=== PATIENT | male | born 1950 | race Caucasian/White ===

== ENCOUNTER → 2017-06-18 | Outpatient (CLI) | payer OTHER ==
[~2017-06-18] MED LIST: ACYCLOVIR800 MG PO; AMITRIPTYLINE H10 MG PO; ARICEPT ODT5 MG PO; ASCO-CAPS-500500 MG PO; ASPIRIN FOR CHI81 MG PO; ASPIRIN81 M1 PO; B-121000 MCG PO; BACLOFEN10 MG PO; BETAPACE; BRIN20TA PO; CLONAZEPAM0.5 MG PO; COLACE100 MG PO; COUMADIN3 M1 PO; COUMADIN3 MG PO; COZAAR25 MG PO; CRESTOR20 MG PO; DIOVAN80 MG PO; DONEPEZIL HYDROC5 M1 PO; ED BACLOFEN10 MG PO; ELITE MAGNESIUM1 TAB PO; EZETIMIBE10 MG PO; FLAGYL500 MG PO; FLONASE0.05 MG/AC NAS; FLUTICASON0.05 MG/A2 NAS; IRON TABLETS325 MG PO; LEVOTHYROXIN0.025 MG PO; LEVOTHYROXINE0.05 MG PO; LIORESAL10 MG PO; LIPITOR40 MG PO; LIPITOR80 MG PO; LOPRESSOR25 MG PO; LOSARTAN POTASS25 M1 PO; METAMUCIL SMOOT1 PDR PO; METAMUCIL1 PDR PO; METOPROLOL SR25 MG PO; OMEPRAZOLE MAGN20 MG PO; PRAVACHOL40 MG PO; PROTONIX40 MG PO; PYRIDIUM200 MG PO; Percocet 325 MG1 TAB PO; RANITIDINE150 MG PO; RESTORIL30 MG PO; RESTORIL7.5 MG PO; SEROQUEL200 MG PO; SERTRALINE50 MG PO; SOTALOL HCL80 MG PO; SOTALOL80 MG PO; SYNTHROID,LEVO50 MCG PO; SYNTHROID0.05 MG PO; TRAMADOL HCL50 MG PO; TRAZADONE HYDR100 MG PO; TRAZODONE100 MG PO; TRAZODONE150 MG PO; ULTRAM50 MG PO; VICODIN 5/500 505 MG PO; VITAMIN D50000 I3 PO; ZANTAC 150150 MG PO; ZANTAC150 MG PO; ZETIA10 MG PO; ZOLOFT100 MG PO
[2017-06-18 09:53] LABS: BASO # 0.1 10*3/uL (0.0-0.1); BASO % 0.7 % (0.0-1.0); EOS # 0.2 10*3/uL (0.0-0.4); EOS % 2.7 % (1.0-4.0); HEMATOCRIT 41.4 % (42.0-52.0); HEMOGLOBIN 13.5 g/dl (14.0-18.0); LYMPH % 34.3 % (27.0-41.0); MEAN CELL VOLUME 84.7 fl (80.0-94.0); MEAN CORPUSCULAR HGB 27.6 pg (27.0-31.0); MEAN CORPUSCULAR HGB CONC 32.6 g/dl (33.0-37.0); MEAN PLATELET VOLUME 8.9 fl (9.6-12.3); MONO # 0.9 10*3/uL (0.1-1.0); MONO % 9.9 % (3.0-9.0); NEUT # 4.5 10*3/uL (2.3-7.9); NEUT % 51.9 % (47.0-73.0); PLATELET COUNT AUTOMATED 245 10*3/uL (130-400); RED BLOOD COUNT 4.89 10*6/uL (4.50-5.90); RED CELL DISTRI WIDTH 15.3 % (0-14.5); WHITE BLOOD COUNT 8.6 10*3/uL (4.8-10.8)
[2017-06-18 10:24] LABS: ALBUMIN 3.5 gm/dl (3.1-4.5); ALKALINE PHOSPHATASE 70 U/L (45-117); BILIRUBIN, TOTAL 0.3 mg/dl (0.2-1.0); BUN 15 mg/dl (7-24); CARBON DIOXIDE 25 mmol/L (21-32); CHLORIDE 105 mmol/L (98-107); EST GLOM FILT AFRICAN AMERICAN > 60 ml/min; GLUCOSE 106 mg/dL (65-99); POTASSIUM 4.1 mmol/L (3.5-5.1); SGOT/AST 36 IU/L (3-35); SGPT/ALT 52 U/L (12-78); SODIUM 141 mmol/L (136-145); TOTAL PROTEIN 7.7 gm/dL (6.4-8.2)
== END | disposition home or self-care (01) ==
LOC: LAB 09:27 → CT 10:00
PROVIDERS: Urology
DX: Z12.5 Encounter for screening for malignant neoplasm of prostate (principal); D40.0 Neoplasm of uncertain behavior of prostate; R31.9 Hematuria, unspecified; I10 Essential (primary) hypertension; R10.9 Unspecified abdominal pain

== ENCOUNTER 2017-08-15 11:26 | Emergency (ER) | payer OTHER ==
[~2017-08-15] VITALS: Wt 83.0 kg
[2017-08-15 11:41] VITALS: BP 151/70
[2017-08-15] MEDS ORDERED: SMZ PO (11:42)
[2017-08-15] MEDS ORDERED: TMP DS PO (11:42)
[2017-08-15] MEDS ORDERED: NORCO 5-325 TA1 EACH PO (14:12)
== END 2017-08-15 14:05 | disposition home or self-care (01) ==
LOC: ED 11:26
DX: S30.0XXA Contusion of lower back and pelvis, initial encounter (principal); Z88.8 Allergy status to other drugs, medicaments and biological substances; Z88.1 Allergy status to other antibiotic agents; Z79.82 Long term (current) use of aspirin; Z79.899 Other long term (current) drug therapy; Z79.02 Long term (current) use of antithrombotics/antiplatelets; W18.39XA Other fall on same level, initial encounter; Y93.89 Activity, other specified; Y92.89 Other specified places as the place of occurrence of the external cause; Y99.8 Other external cause status

== ENCOUNTER 2017-10-22 10:26 | Emergency (ER) | payer OTHER ==
[~2017-10-22] VITALS: Ht 170.1 cm; Wt 79.8 kg
[~2017-10-22 10:26] MED LIST changes: +NORCO 5-325 TA1 EACH PO; +SMZ PO; +TMP DS PO
[2017-10-22 10:43] VITALS: BP 130/74
[2017-10-22 11:14] LABS: BILIRUBIN NEGATIVE (NEGATIVE); BLOOD NEGATIVE (NEGATIVE); CLARITY CLEAR (CLEAR); COLOR YELLOW (YELLOW); GLUCOSE NEGATIVE (NEGATIVE); KETONE NEGATIVE (NEGATIVE); LEUKO ESTERASE NEGATIVE (NEGATIVE); NITRITE NEGATIVE (NEGATIVE); PH 5.5 (5.0-9.0); UROBILINOGEN 0.2 E.U./dl (0.2-1.0)
[2017-10-22 11:20] LABS: BASO # 0.1 10*3/uL (0.0-0.1); BASO % 0.8 % (0.0-1.0); EOS # 0.2 10*3/uL (0.0-0.4); EOS % 2.6 % (1.0-4.0); HEMOGLOBIN 13.9 g/dl (14.0-18.0); LYMPH # 2.7 10*3/uL (1.3-4.4); LYMPH % 30.5 % (27.0-41.0); MEAN CORPUSCULAR HGB 27.8 pg (27.0-31.0); MEAN CORPUSCULAR HGB CONC 33.1 g/dl (33.0-37.0); MONO # 0.9 10*3/uL (0.1-1.0); MONO % 10.3 % (3.0-9.0); NEUT % 55.5 % (47.0-73.0); PLATELET COUNT AUTOMATED 265 10*3/uL (130-400); RED CELL DISTRI WIDTH 13.5 % (0-14.5); WHITE BLOOD COUNT 8.9 10*3/uL (4.8-10.8)
[2017-10-22 11:28] LABS: ACT PARTIAL THROMBO TIME 38.8 SECONDS (20.8-31.5); INTERNATIONAL NORM RATIO 2.5 (2.0-3.5)
[2017-10-22 11:35] LABS: ALBUMIN 3.9 gm/dl (3.1-4.5); ALKALINE PHOSPHATASE 76 U/L (45-117); BUN 13 mg/dl (7-24); CHLORIDE 104 mmol/L (98-107); CREATININE 1.07 mg/dL (0.70-1.30); LIPASE 164 U/L (73-393); POTASSIUM 4.3 mmol/L (3.5-5.1); SGOT/AST 27 IU/L (3-35); SGPT/ALT 39 U/L (12-78); SODIUM 138 mmol/L (136-145); TOTAL PROTEIN 8.4 gm/dL (6.4-8.2); TROPONIN I < 0.015 ng/ml (<0.045)
[2017-10-22] MEDS ORDERED: PEPCID20 MG PO (16:09)
[2017-10-22] MEDS ORDERED: CARAFATE1 G1 PO (16:09)
[2017-10-22] MEDS ORDERED: XANAX0.5 MG PO (17:13)
== END 2017-10-22 16:15 | disposition home or self-care (01) ==
LOC: ED 10:26
PROVIDERS: Emergency Medicine
DX: K29.00 Acute gastritis without bleeding (principal); F17.200 Nicotine dependence, unspecified, uncomplicated; Z88.8 Allergy status to other drugs, medicaments and biological substances; Z88.1 Allergy status to other antibiotic agents; Z79.899 Other long term (current) drug therapy; Z79.02 Long term (current) use of antithrombotics/antiplatelets

== ENCOUNTER 2018-05-21 15:44 | Inpatient (IN) | payer OTHER ==
[~2018-05-21] VITALS: Ht 170.1 cm; Wt 79.4 kg
--- NOTE | ~2018-05-21 | CON ---
[place], [place] REPORT OF CONSULTATION NAME: [id number] UNIT #: [id number] ROOM: 521 DOCTOR: TAMMIE NIETO MD BIRTHDATE: [birth year] DOS: 05/22/2018 CHIEF COMPLAINT: ICD discharge. HISTORY OF PRESENT ILLNESS: The patient was seen at his bedside with his in attendance today on 05/22/2018 for evaluation of an ICD discharge. He is a 67-year-old man who initially presented with coronary artery disease in the . He had bypass surgery and then a redo in 1996. He suffered an acute myocardial infarction in 2006 with cardiac arrest and was resuscitated at home. He underwent saphenous vein graft stenting to the right coronary artery in 2006. His most recent stress test to my knowledge was done in July 2015 and was a normal examination. Ejection fraction at that time was 55-60% with mild mitral insufficiency noted on an echocardiogram. The patient had an ICD placed after his cardiac arrest in 2006. The device has been replaced twice since then with a lead revision in 2014. The patient developed paroxysmal atrial fibrillation and has had persistent atrial fibrillation since 10/2017. Associated with this, he has had fatigue and dyspnea. There was consideration that he should have his atrial fibrillation, cardioverted; however, his warfarin has been very difficult to control and he is often either supratherapeutic or subtherapeutic; therefore, cardioversion was delayed on numerous occasions. He was scheduled to have a cardioversion done by Dr. Wolff's steam at [facility] this coming week. Yesterday, he was working at home, rushing around and his ICD went off. He had no warning. He did not feel badly beforehand. Interrogation of the ICD showed that he had gone into atrial fibrillation with rapid ventricular response and the device had responded to that. He did not have ventricular tachycardia. He now feels well. Troponin was negative. His EKG showed no acute changes. PAST MEDICAL HISTORY: Includes, 1. Coronary artery disease. 2. Remote bypass surgery with redo in 1996. 3. Acute myocardial infarction complicated by cardiac arrest 2006. The patient had a catheterization with angioplasty to the saphenous vein graft to his right coronary artery. 4. Stress test on 07/21/2015 reportedly normal with ejection fraction 62%. 5. Echocardiogram on 07/21/2015, ejection fraction 55-60% with mild mitral insufficiency. 6. ICD placed in 2006 after resuscitated cardiac arrest. The device has been replaced twice since then. He had a lead revision and a generator change in 2014. 7. Paroxysmal atrial fibrillation. 8. Warfarin therapy for stroke prophylaxis. The patient's INR is extremely difficult to manage. MEDICATIONS: Prior to admission included alprazolam 0.5 mg daily as needed for anxiety, amitriptyline 25 mg at bedtime, buspirone 5 mg t.i.d., levothyroxine 75 [place], [place] REPORT OF CONSULTATION NAME: SEYMOUR BUENROSTRO UNIT #: [id number] ROOM: 521 DOCTOR: TAMMIE NIETO MD BIRTHDATE: [birth year] mcg daily, metoprolol 12.5 mg b.i.d., Seroquel 400 mg at bedtime, ropinirole 1 mg at bedtime, trazodone 150 mg at bedtime, warfarin to maintain an INR between 2 and 3 and zolpidem 10 mg at bedtime. ALLERGIES: LISINOPRIL, WHICH CAUSES ITCHING, PHENYTOIN AND CIPROFLOXACIN. FAMILY HISTORY: Negative for early coronary artery disease. REVIEW OF SYSTEMS: The patient denies diplopia or loss of vision. He denies focal weakness. He did have lightheadedness, syncope and an ICD discharge yesterday. This was due to atrial fibrillation and a rapid ventricular response. He denies fevers, chills, sweats or recent weight change. He has been fatigued. He does complain of some leg weakness. He denies nausea or vomiting. He denies hemoptysis or hematemesis. He denies change in bowel or bladder habits. He denies blood in his stools or urine. He has not had fevers, heat or cold intolerance. He has not had polyuria or polydipsia. He has not had any peripheral edema. The remainder of the review of systems is negative except as noted above. SOCIAL HISTORY: The patient is and lives with his . He does not smoke or consume significant amounts of alcohol at this time. PHYSICAL EXAMINATION: GENERAL: The patient is a well-nourished white male who is awake, alert and oriented. VITAL SIGNS: Pulse is 56 and regular, blood pressure 134/74. He is afebrile. NECK: Supple. He has no jugular distention. Carotids are full, and no bruits. He had no neck or supraclavicular masses, no thyromegaly. LUNGS: Respirations are unlabored. His chest is clear to auscultation and percussion. He has no presacral edema or chest wall tenderness. CARDIOVASCULAR: His heart has a regular rhythm. He has a fourth heart sound, but I did not hear a third heart sound or murmur. The PMI is not displaced. There is no precordial heave, lift or thrill. ABDOMEN: Soft and normally active without masses, organomegaly or bruits. EXTREMITIES: Showed no edema. Peripheral pulses are easily palpated bilaterally. LABORATORY DATA: Hemoglobin is 11.5, hematocrit 35.8, there are 7200 white cells and 193,000 platelets. INR is 3.4. Sodium is 140, potassium 3.9, chloride 106, CO2 28, BUN 11, creatinine 0.89 with a GFR of greater than 60. Troponin was normal. IMPRESSIONS: 1. Coronary artery disease, status post multiple revascularizations in the past. 2. Myocardial infarction complicated by cardiac arrest 2006. 3. ICD placed after resuscitated cardiac arrest 2006. 4. Paroxysmal atrial fibrillation, which has been more or less continuous since 10/2017. 5. Fatigue and lack of ambition probably due to decreased cardiac output from [place], [place] REPORT OF CONSULTATION NAME: SEYMOUR BUENROSTRO UNIT #: [id number] ROOM: 521 DOCTOR: TAMMIE NIETO MD BIRTHDATE: [birth year] atrial fibrillation. 6. Implantable cardioverter defibrillator discharge found to be inappropriate and due to reaction to atrial fibrillation with rapid ventricular response. 7. The patient converted from atrial fibrillation to sinus rhythm during implantable cardioverter defibrillator discharge. PLAN: The patient's warfarin has been very difficult to adjust and I strongly suggested to be stopped in favor of one of the direct oral anticoagulants. Xarelto would be an appropriate choice. He is on a very small dose of beta randy, which allowed his rate to respond rapidly to his atrial fibrillation. I would increase his metoprolol from 12.5 to 25 mg twice a day. I think that the patient should be on an antiarrhythmic drug at this time. I will be starting propafenone 325 mg twice a day. The patient will be seen by his regular php architect within the next week or two and they can decide if they want to keep that or use a different antiarrhythmic drug. It has been over 2 years since the patient's last stress test. We will proceed with an outpatient Lexiscan myocardial perfusion study in order to make sure that he has not developed significant ischemia or LV dysfunction since his last testing. From my perspective, all of this could be done as an outpatient and we will make these recommendations and then allow the patient to go home. We will arrange for his stress test and propafenone. I thank Dr. Navarrete for asking our advice regarding his care. TAMMIE NIETO MD CM:CONSTR:REPORT OF CONSULTATION 1342 05/23/18 1056 interface
--- NOTE | ~2018-05-21 | DS ---
[place], [place] DISCHARGE SUMMARY NAME: SEYMOUR BUENROSTRO UNIT #: [id number] ROOM: 521 DOCTOR: BHAVIN ROCA MD BIRTHDATE: [birth year] DOS: 05/22/2018 DISCHARGE DIAGNOSES: 1. Defibrillation by ICD for rapid atrial fibrillation at a heart rate of above 180 beats per minute. The patient is in sinus rhythm now. 2. Coronary artery disease of the [place] vessels and coronary artery bypass graft. 3. Colonic diverticulosis. 4. Cardiomyopathy and defibrillator placement. 5. Ischemic colitis history. 6. Benign essential hypertension. 7. Mixed hyperlipidemia. 8. Hypothyroidism. 9. Generalized anxiety disorder. 10. Early signs of Alzheimer's disease. 11. Paroxysmal atrial fibrillation. HOSPITAL COURSE: 1. The patient was apparently in atrial fibrillation for many months and which he was scheduled for cardioversion. The patient apparently was exerting himself working on his boat and was anxious to get somewhere in time and he got shocked by his ICD, which knocked him out. Following this, he was found to be in normal sinus rhythm. The patient was brought to the Emergency Department and admitted and seen by Cardiology. The patient has remained in normal sinus rhythm with controlled heart rates and if cleared by Cardiology, can be discharged to home in a stable condition today. 2. Benign essential hypertension, treated and controlled. 3. Hypothyroidism, replaced with supplements. 4. Coronary artery disease of the [place] vessel and coronary artery bypass grafts without chest pains. LABORATORY DATA: Hemoglobin 11.5. Normal serum electrolytes. DISCHARGE MANAGEMENT: Coumadin 6 mg every Friday, and Friday and 3 mg every Friday, Friday, Friday and Friday; levothyroxine 75 mcg a day; trazodone 150 mg at bedtime; ropinirole 1 mg at bedtime; Seroquel 400 mg at bedtime; metoprolol 12.5 mg b.i.d.; amitriptyline 25 mg a day; Xanax 0.5 mg daily; Ambien 10 mg at bedtime as needed; buspirone 5 mg t.i.d. [place], [place] DISCHARGE SUMMARY NAME: SEYMOUR BUENROSTRO UNIT #: [id number] ROOM: 521 DOCTOR: BHAVIN ROCA MD BIRTHDATE: [birth year] BHAVIN ROCA MD CM:VICKI [id number] BHAVIN ROCA MD 05/25/18 1119 interface
--- NOTE | ~2018-05-21 | WRIGHTHP ---
[place], [place] PATIENT HISTORY AND PHYSICAL EXAM NAME: SEYMOUR BUENROSTRO [facility] #: [id number] UNIT #: [id number] ROOM: 521 DOCTOR: BHAVIN ROCA MD BIRTHDATE: [birth year] DOS: 05/21/2018 HISTORY OF PRESENT ILLNESS: The patient is a 67-year-old gentleman with a past medical history of: 1. Colonic diverticulosis. 2. Coronary artery disease, status post coronary artery bypass grafts. 3. Cardiomyopathy, with internal cardiac defibrillator and pacemaker placement. 4. History of ischemic colitis. 5. Benign essential hypertension. 6. Mixed hyperlipidemia. 7. Hypothyroidism. 8. Generalized anxiety disorder. 9. Early signs of Alzheimer's disease. 10. Paroxysmal atrial fibrillation. The patient presented to the Emergency Department at [place] [facility] after he was working on his boat and he was in a hurry when he was shocked by the defibrillator. The patient was brought to the Emergency Department and defibrillator was interrogated to find that he was shocked because he was in atrial fibrillation and heart rate went as high as 180 beats per minute. The patient had lost consciousness, but he was awake and alert when he came to the Emergency Department and after initial evaluation, he was recommended for admission to be observed at least overnight and a consult was obtained with Dr. Huber, the telephone station repairer. The patient says this is the first time he has been shocked by the defibrillator. No recent complaints of any dizziness or fainting episodes. No chest pains or any other symptoms. The patient was feeling well before he got shocked. REVIEW OF SYSTEMS: LUNGS: No increasing shortness of breath. GASTROINTESTINAL: No nausea, vomiting, diarrhea or constipation. CARDIOVASCULAR: No chest pains or palpitations. FAMILY HISTORY: Noncontributory. SOCIAL HISTORY: Denies smoking cigarettes, alcohol and drug abuse. MEDICATIONS: Coumadin, metoprolol, levothyroxine, trazodone, ropinirole, Seroquel, amitriptyline, buspirone, Xanax, Ambien. ALLERGIES: Known allergies to LISINOPRIL, DILANTIN and CIPRO. PHYSICAL EXAMINATION: GENERAL: Alert, oriented x 3, in no visible distress. HEENT AND NECK: Extraocular movements are intact. Sclerae are anicteric. Oral mucosa is moist and clean. No obvious facial weakness. Neck is supple without any lymphadenopathy. No thyromegaly. No JVD. No carotid arterial bruits. LUNGS: Clear to auscultation. No wheezing. No rhonchi. [place], [place] PATIENT HISTORY AND PHYSICAL EXAM [facility]: [id number] UNIT #: [id number] ROOM: 521 DOCTOR: BHVAIN ROCA MD BIRTHDATE: [birth year] CARDIOVASCULAR SYSTEM: Heart rate is regular in rate and rhythm. S1 and S2 normally audible. No significant murmur or any other abnormal cardiac sounds. ABDOMEN: Soft, nontender. No obvious organomegaly. Bowel sounds are present. No obvious herniation. EXTREMITIES: Without significant cyanosis or edema. Warm to touch. CENTRAL NERVOUS SYSTEM: Alert and oriented x 3. Cranial nerves II-XII are intact. Speech is normal. The patient is able to move all extremities. Normal muscle strength. Deep tendon reflexes are equal on both sides. Plantars were downgoing. IMPRESSION AND PLAN: 1. The patient with history of paroxysmal atrial fibrillation, presents with episode of loss of consciousness after he was shocked by his internal defibrillator. Interrogation of the defibrillator apparently showed that he got shocked with rapid atrial fibrillation with a ventricular response of more than 180 beats per minute. The patient's heart rate ranging between 90-110 beats per minute and normal sinus rhythm. The patient's case was discussed with Dr. Huber and the defibrillation could have put the patient back into normal sinus rhythm. The patient is being monitored closely on the intermediate monitored bed and I also taught the patient how to check his heart rate quickly when needed and try to keep his heart rate generally below 140 beats per minute. 2. History of major depression, recurrent, treated by Psychiatry. 3. History of coronary artery disease of the [place] vessels, without chest pain and coronary artery bypass grafts. 4. Benign essential hypertension, treated and controlled. The patient takes metoprolol at home. 5. Chronic paroxysmal atrial fibrillation. The patient remains anticoagulated with Coumadin and he takes metoprolol. 6. Coronary artery disease of the [place] vessels, without chest pain. 7. Hypothyroidism, treated with thyroid supplements. 8. Mixed hyperlipidemia, treated with Pravachol. BHAVIN ROCA MD CM:HISPHYS:PATIENT HISTORY AND PHYSICAL EXAMINATION 01 45 BHAVIN ROCA MD 05/21/181944 interface
[~2018-05-21 15:44] MED LIST changes: +CARAFATE1 G1 PO; +PEPCID20 MG PO; -SYNTHROID,LEVO50 MCG PO; +Synthroid,Levo75 MCG PO; +XANAX0.5 MG PO
[2018-05-21 15:47] VITALS: BP 154/84
[2018-05-21] MEDS ORDERED: AMBIEN10 M1 PO (15:52)
[2018-05-21] MEDS ORDERED: AMITRIPTYLINE25 MG PO (15:54)
[2018-05-21] MEDS ORDERED: ROPINIROLE HYDRO1 MG PO (15:55)
[2018-05-21] MEDS ORDERED: BUSPAR5 MG PO (15:57)
[2018-05-21 16:00] VITALS: BP 158/84
[2018-05-21] MEDS ORDERED: COUMADIN3 M1 PO (16:01)
[2018-05-21] MEDS ORDERED: COUMADIN6 M2 PO (16:03)
[2018-05-21 16:05] LABS: BASO % 0.5 % (0.0-1.0); EOS # 0.2 10*3/uL (0.0-0.4); EOS % 2.1 % (1.0-4.0); HEMATOCRIT 38.4 % (42.0-52.0); HEMOGLOBIN 12.6 g/dl (14.0-18.0); LYMPH # 2.3 10*3/uL (1.3-4.4); LYMPH % 27.2 % (27.0-41.0); MEAN CELL VOLUME 82.4 fl (80.0-94.0); MEAN CORPUSCULAR HGB CONC 32.8 g/dl (33.0-37.0); MEAN PLATELET VOLUME 9.3 fl (9.6-12.3); MONO # 0.8 10*3/uL (0.1-1.0); MONO % 9.5 % (3.0-9.0); NEUT # 5.2 10*3/uL (2.3-7.9); NEUT % 60.4 % (47.0-73.0); PLATELET COUNT AUTOMATED 218 10*3/uL (130-400); RED BLOOD COUNT 4.66 10*6/uL (4.50-5.90); RED CELL DISTRI WIDTH 15.2 % (0-14.5); WHITE BLOOD COUNT 8.6 10*3/uL (4.8-10.8)
[2018-05-21 16:14] LABS: ACT PARTIAL THROMBO TIME 42.4 SECONDS (20.8-31.5); INTERNATIONAL NORM RATIO 3.6 (2.0-3.5)
[2018-05-21 16:20] LABS: ALBUMIN 3.8 gm/dl (3.1-4.5); ALKALINE PHOSPHATASE 65 U/L (45-117); BUN 10 mg/dl (7-24); CHLORIDE 107 mmol/L (98-107); CREATININE 1.02 mg/dL (0.70-1.30); LIPASE 72 U/L (73-393); POTASSIUM 3.8 mmol/L (3.5-5.1); SGOT/AST 21 IU/L (3-35); SGPT/ALT 29 U/L (12-78); SODIUM 140 mmol/L (136-145); TOTAL PROTEIN 7.9 gm/dL (6.4-8.2)
[2018-05-21 16:27] LABS: TROPONIN I < 0.015 ng/ml (<0.045)
[2018-05-21 16:29] VITALS: BP 139/85
[2018-05-21 17:01] VITALS: BP 144/76
[2018-05-21 17:38] VITALS: BP 153/88
[2018-05-21 20:00] VITALS: BP 138/71
[2018-05-22] VITALS: BP 132/69
[2018-05-22 07:01] LABS: BASO # 0.1 10*3/uL (0.0-0.1); BASO % 0.8 % (0.0-1.0); EOS # 0.3 10*3/uL (0.0-0.4); EOS % 4.2 % (1.0-4.0); HEMATOCRIT 35.8 % (42.0-52.0); HEMOGLOBIN 11.5 g/dl (14.0-18.0); LYMPH # 2.5 10*3/uL (1.3-4.4); LYMPH % 34.5 % (27.0-41.0); MEAN CORPUSCULAR HGB CONC 32.1 g/dl (33.0-37.0); MEAN PLATELET VOLUME 9.3 fl (9.6-12.3); MONO # 0.9 10*3/uL (0.1-1.0); NEUT # 3.4 10*3/uL (2.3-7.9); NEUT % 47.1 % (47.0-73.0); PLATELET COUNT AUTOMATED 193 10*3/uL (130-400); RED BLOOD COUNT 4.26 10*6/uL (4.50-5.90); RED CELL DISTRI WIDTH 15.4 % (0-14.5); WHITE BLOOD COUNT 7.2 10*3/uL (4.8-10.8)
[2018-05-22 07:06] LABS: INTERNATIONAL NORM RATIO 3.4 (2.0-3.5)
[2018-05-22 07:26] LABS: BUN 11 mg/dl (7-24); CHLORIDE 106 mmol/L (98-107); CREATININE 0.89 mg/dL (0.70-1.30); POTASSIUM 3.9 mmol/L (3.5-5.1); SODIUM 140 mmol/L (136-145)
[2018-05-22 08:00] VITALS: BP 118/65
[2018-05-22 12:00] VITALS: BP 134/74
[2018-05-22] MEDS ORDERED: LOPRESSOR25 MG PO (14:12)
[2018-05-22] MEDS ORDERED: PROPAFENONE HC225 M1 PO (14:12)
== END 2018-05-22 14:30 | disposition home or self-care (01) | DRG 310 ==
LOC: ED 15:44 → EDHOLD 17:19 → 5E 17:19
PROVIDERS: Emergency Medicine; Internal Medicine
PROC: 4B02XTZ Measurement of Cardiac Defibrillator, External Approach (ICD-10-PCS; principal; 2018-05-21)
DX: I48.0 Paroxysmal atrial fibrillation (principal); I42.9 Cardiomyopathy, unspecified; G30.9 Alzheimer's disease, unspecified; F02.80 Dementia in other diseases classified elsewhere, unspecified severity, without behavioral disturbance, psychotic disturbance, mood disturbance, and anxiety; I25.10 Atherosclerotic heart disease of native coronary artery without angina pectoris; F32.9 Major depressive disorder, single episode, unspecified; K57.30 Diverticulosis of large intestine without perforation or abscess without bleeding; I10 Essential (primary) hypertension; E78.2 Mixed hyperlipidemia; E03.9 Hypothyroidism, unspecified; F41.1 Generalized anxiety disorder; Z88.8 Allergy status to other drugs, medicaments and biological substances; Z79.899 Other long term (current) drug therapy; Z79.01 Long term (current) use of anticoagulants; Z79.82 Long term (current) use of aspirin; Z95.1 Presence of aortocoronary bypass graft; Z90.89 Acquired absence of other organs; Z82.49 Family history of ischemic heart disease and other diseases of the circulatory system; Z95.810 Presence of automatic (implantable) cardiac defibrillator; I25.2 Old myocardial infarction

== ENCOUNTER → 2018-05-27 | Outpatient (CLI) | payer OTHER ==
[~2018-05-27] MED LIST changes: +AMBIEN10 M1 PO; +AMITRIPTYLINE25 MG PO; +BUSPAR5 MG PO; +COUMADIN6 M2 PO; +PROPAFENONE HC225 M1 PO; +ROPINIROLE HYDRO1 MG PO
--- NOTE | ~2018-05-27 | ST ---
[place], [place] EXERCISE STRESS TEST REPORT NAME: SEYMOUR BUENROSTRO [facility] #: [id number] UNIT #: [id number] ROOM: DOCTOR: TAMMIE NIETO MD BIRTHDATE: [birth year] DOS: 05/27/2018 PHARMACOLOGIC MYOCARDIAL STRESS TEST INDICATIONS: Atherosclerotic heart disease, post-bypass surgery, recent ICD discharge. PROCEDURE: The patient was given rapid infusion of regadenoson, 0.4 mg intravenously followed by a saline flush. He felt some chest pressure and nausea, but the symptoms resolved spontaneously. His electrocardiogram showed sinus rhythm throughout the entire procedure with a heart rate increasing from 63 to 91 during the infusion. Blood pressure fell from 154/78 to 132/70. Forty seconds after the infusion of regadenoson, he was given radionuclide intravenously. IMPRESSION: 1. Well-tolerated infusion of regadenoson. 2. Radionuclide administered. Please see the separate imaging report for further details of the patient's stress test results. TAMMIE NIETO MD CM:STRESS:EXERCISE STRESS TEST REPORT 1309 0410 TAMMIE NIETO MD
== END | disposition home or self-care (01) ==
LOC: CARD 02:20
DX: I25.10 Atherosclerotic heart disease of native coronary artery without angina pectoris (principal)

== ENCOUNTER → 2018-06-16 | Outpatient (CLI) | payer OTHER | END | disposition home or self-care (01) | LOC: CT 06-15 11:00 | DX: M54.5 Low back pain (principal); W19.XXXA Unspecified fall, initial encounter ==

== ENCOUNTER 2019-05-19 12:27 | Emergency (ER) | payer OTHER ==
[~2019-05-19] VITALS: Wt 78.5 kg
--- NOTE | ~2019-05-19 | EKG ---
[place], [place] ELECTROCARDIOGRAM REPORT NAME: SEYMOUR BUENROSTRO UNIT #: [id number] ROOM: DOCTOR: EPIPHANY DRAFT REPORT BIRTHDATE: [birth year] [facility] Test Date: 2019-05-19 Test Time: 13:02:53 Pat Name: SEYMOUR BUENROSTRO Department: Room: Gender: Angle Shearer: : 1950 Requested By: ABBEY RIVAS Order Number: [id number] Reading MD: William Gregory Measurements Intervals [place] Rate: 69 P: 74 OR: 245 QRS: 24 QRSD: 98 T: 48 QT: 397 QTc: 426 Interpretive Statements Sinus rhythm Prolonged OR interval Electronically Signed On 05-20-2019 4:33:47 PDT by William Gregory CM:EKGRPT:ELECTROCARDIOGRAM REPORT 1302 0433 ABBEY RIVAS EPIPHANY DRAFT REPORT ABBEY RIVAS
[2019-05-19 13:05] LABS: HEMATOCRIT 38.9 % (42.0-52.0); HEMOGLOBIN 12.3 g/dl (14.0-18.0); MEAN CELL VOLUME 87.4 fl (80.0-94.0); MEAN CORPUSCULAR HGB 27.6 pg (27.0-31.0); MEAN CORPUSCULAR HGB CONC 31.6 g/dl (33.0-37.0); PLATELET COUNT AUTOMATED 219 10*3/uL (130-400); RED BLOOD COUNT 4.45 10*6/uL (4.50-5.90); WHITE BLOOD COUNT 7.9 10*3/uL (4.8-10.8)
[2019-05-19 13:21] LABS: ALBUMIN 3.2 gm/dl (3.1-4.5); ALKALINE PHOSPHATASE 90 U/L (45-117); BUN 18 mg/dl (7-24); CHLORIDE 107 mmol/L (98-107); CREATININE 1.11 mg/dL (0.70-1.30); POTASSIUM 4.1 mmol/L (3.5-5.1); SGOT/AST 12 IU/L (3-35); SGPT/ALT 27 U/L (12-78); SODIUM 139 mmol/L (136-145); TOTAL PROTEIN 7.3 gm/dL (6.4-8.2)
[2019-05-19 13:22] LABS: TROPONIN I < 0.015 ng/ml (<0.045)
[2019-05-19 13:25] LABS: TOTAL CELLS COUNTED 100 #CELLS
[2019-05-19 13:26] LABS: PLATELET SUFFICIENCY NORMAL (NORMAL)
[2019-05-19 13:49] LABS: BILIRUBIN NEGATIVE (NEGATIVE); BLOOD NEGATIVE (NEGATIVE); CLARITY CLEAR (CLEAR); COLOR YELLOW (YELLOW); GLUCOSE NEGATIVE (NEGATIVE); KETONE NEGATIVE (NEGATIVE); LEUKO ESTERASE NEGATIVE (NEGATIVE); NITRITE NEGATIVE (NEGATIVE); PH 5.5 (5.0-9.0); SPECIFIC GRAVITY >= 1.030 (1.005-1.030); UROBILINOGEN 0.2 E.U./dl (0.2-1.0)
[2019-05-19 13:57] LABS: BACTERIA 1+; EPITHELIAL CELLS 16-20; HYALINE CAST 0-2; MUCOUS 1+
[2019-05-19 14:00] VITALS: BP 149/68
== END 2019-05-19 17:01 | disposition home or self-care (01) ==
LOC: ED 12:27
PROVIDERS: Nurse Practitioner Family
DX: R19.7 Diarrhea, unspecified (principal); R42 Dizziness and giddiness; R55 Syncope and collapse; I48.91 Unspecified atrial fibrillation; Z79.899 Other long term (current) drug therapy; Z88.8 Allergy status to other drugs, medicaments and biological substances; Z88.1 Allergy status to other antibiotic agents

== ENCOUNTER 2019-07-20 13:23 | Inpatient (IN) | payer OTHER ==
[~2019-07-20] VITALS: Ht 170.1 cm; Wt 78.7 kg
--- NOTE | ~2019-07-20 | DS ---
[place], [place] DISCHARGE SUMMARY NAME: SEYMOUR BUENROSTRO [facility] #: [id number] UNIT #: [id number] ROOM: 419 DOCTOR: TOM TRUJILLO MD BIRTHDATE: [birth year] DOS: 07/28/2019 DIAGNOSES: 1. Acute diverticulitis. 2. Obstipation. 3. Abdominal pain with endoscopy showing gastric ulcer. 4. Adult failure to thrive. 5. Multiple falls, refusing skilled. 6. Polypharmacy. 7. Generalized anxiety disorder. 8. Coronary artery disease. 9. Benign hypertension. 10. History of AICD pacemaker placement. 11. Hypothyroidism. 12. Paroxysmal atrial fibrillation. DISCHARGE MEDICATIONS: Protonix 40 daily, Cipro 500 b.i.d., Flagyl 500 t.i.d., levothyroxine 75 mcg daily, trazodone 150 at bedtime to be held while on the Cipro, Requip 1 mg at bedtime, BuSpar 5 t.i.d., propafenone 225 b.i.d., and metoprolol 25 b.i.d. The medications discontinued were Seroquel, Xanax, Elavil, and zolpidem. HOSPITAL COURSE: The patient is a 68-year-old, very well known to us. The patient comes to the office with complaints of abdominal pain and lack of bowel movements for about 2 weeks. Please refer to H and P for details. After admission, acute abdominal series did not show any evidence of ileus. Dr. Limon was consulted. The patient was placed on IV fluids and multiple medicines were ordered for constipation. The patient continued to have increased abdominal pain. He was taken for endoscopy by Dr. Limon showing a gastric ulcer and was placed on Protonix. After being diagnosed with diverticulitis, he was also placed on IV antibiotics. Dr. Limon was going to do a colonoscopy, which was canceled once we knew the diverticulitis was present. The patient's white cell count after being placed on the antibiotics, continued to rise from 17-20,000. Infectious Disease was consulted. They agreed on continued treatment plan. The white cell count is finally normalized and his abdominal pain has improved. His constipation has resolved and he is eating a regular diet. He has increased risk for falls with extreme imbalance issues. The patient was advised SNF placement, but he has refused. PT has been working with him here. Visiting nurses will be consulted for PT, OT at home. He also seems to have some evidence of polypharmacy with multiple psych medications usage. This also increases the risk of his falls and some of his medicines have been discontinued. The patient is stable this morning. The plan is to discharge him to home today. He does have some minimal leg edema, possibly from all the fluids that he received. One dose of Lasix will be given before discharge. His blood pressures have been controlled on the current dose of medications. DISCHARGE INDICATIONS: As above. Regular diet. [place], [place] DISCHARGE SUMMARY NAME: SEYMOUR BUENROSTRO UNIT #: [id number] ROOM: 419 DOCTOR: TOM TRUJILLO MD BIRTHDATE: [birth year] TOM TRUJILLO MD CM:VICKI 6 TOM TRUJILLO MD 07/28/1948 interface
--- NOTE | ~2019-07-20 | PR ---
[place], [place] PROGRESS NOTE NAME: [id number] UNIT #: [id number] ROOM: 419 DOCTOR: BHAVIN ROCA MD BIRTHDATE: [birth year] DOS: 07/25/2019 SUBJECTIVE: The patient is doing well, although continues to have lower abdominal pain, but overall improving. OBJECTIVE: GENERAL APPEARANCE: The patient is alert and oriented x 3, in no visible distress. VITAL SIGNS: Blood pressure 123/62, heart rate 60 beats per minute, breathing 20 times per minute, temperature 98 degrees Fahrenheit. HEENT AND NECK: Exam within normal limits. CARDIOVASCULAR SYSTEM: Heart rate is regular in rate and rhythm. S1 and S2 normally audible. LUNGS: Clear to auscultation. ABDOMEN: Lower abdominal pain and tenderness. EXTREMITIES: Without significant cyanosis or edema. IMPRESSION: 1. Acute sigmoid diverticulitis with leukocytosis. I will repeat blood counts tomorrow. Yesterday, they were 20,000 and I added Flagyl to the treatment. The patient already on ciprofloxacin. 2. Hypothyroidism, replaced with levothyroxine. 3. Chronic constipation, resolved with treatment. 4. Benign essential hypertension, treated with Lopressor. Blood pressure is being monitored. BHAVIN ROCA MD CM:PNTRANS [id number] BHAVIN ROCA MD 07/26/19 0022 interface
--- NOTE | ~2019-07-20 | PR ---
[place], [place] PROGRESS NOTE NAME: [facility]O [facility] [id number] UNIT #: [id number] ROOM: 419 DOCTOR: TOM TRUJILLO MD BIRTHDATE: [birth year] DOS: 07/23/2019 SUBJECTIVE: The patient complains of some abdominal discomfort. OBJECTIVE: VITAL SIGNS: Graphic trend shows a pressure of 112/50, pulse is 79, respirations 18, temperature 99.1. LUNGS: Clear. HEART: Regular. ABDOMEN: Obese, soft, some minimal discomfort and it is also slightly more tense. EXTREMITIES: Without any edema. DIAGNOSTIC DATA: CT of the abdomen and pelvis shows steatosis, evidence of diverticulitis, wall thickening of the sigmoid colon. LABORATORY DATA: CBC: WBC count is 10.8, hemoglobin 11.2. ASSESSMENT AND PLAN: 1. Acute diverticulitis, on IV fluids and IV antibiotics. 2. Obstipation. The patient will be given one dose of Dilaudid today. He finally had a bowel movement during the night. 3. Dizziness with falls. PT/OT will be consulted. TOM TRUJILLO MD CM:PRADEEP [id number] TOM TRUJILLO MD 07/23/19 0640 interface
--- NOTE | ~2019-07-20 | CON ---
[place], [place] REPORT OF CONSULTATION NAME: SEYMOUR BUENROSTRO UNIT #: [id number] ROOM: 419 DOCTOR: DAMASO CLARK MD BIRTHDATE: [birth year] DOS: 07/21/2019 HISTORY OF PRESENT ILLNESS: A 68-year-old patient who has presented with chief complaint of blood in stool and constipation. He has been on Xarelto and aspirin, however. Laboratory data, white blood cell at the time of admission 9, H and H of 11 and 35. Comprehensive metabolic panel: GFR greater than 60. Liver function test nearly normal. Electrolytes balance. Chemistry normal. CT scan of the head, no intracranial pathology, mild chronic vessel disease. Doppler study a 69% stenosis, bilateral lumens. Lactic acid was 1. Acute abdominal series, a moderately large volume stool throughout the colon. CTA of the right carotid atherosclerosis again some were about 50% and detail vascular studies. PAST MEDICAL HISTORY: Diverticulosis, coronary artery disease, cardiomyopathy, hypothyroidism, dizziness, hypertension, hyperlipidemia, atrial fibrillation, Alzheimer's. MEDICATIONS: Reviewed. SOCIAL HISTORY: Nonsmoker, nonalcohol. ALLERGIES: DILANTIN. He does not recall others. FAMILY HISTORY: Noncontributory. REVIEW OF SYSTEMS: HEENT: Denies double vision, blurred vision. RESPIRATORY: Denies shortness of breath. CARDIOVASCULAR: Denies chest pain. DIGESTIVE SYSTEM: Blood in the stool, constipation. PHYSICAL EXAMINATION: VITAL SIGNS: Stable. HEENT: Benign edentulous. NECK: Supple, no thyromegaly, no cervical lymphadenopathy. CHEST: Symmetric anatomy, decreased air entry bilaterally. No wheeze, no rhonchi. HEART: Normal sinus rhythm, no gallop, no murmur. ABDOMEN: Soft. No hepato-organomegaly. Bowel sounds present. EXTREMITIES: No cyanosis, no pedal edema. NEUROLOGIC: Alert, oriented to time, place, person. LABORATORY DATA: Reviewed. Records reviewed. IMPRESSION: Constipation, blood in stool on aspirin and Xarelto, otherwise as dictated in past medical and surgical history. PLAN AND DISCUSSION: We are going to proceed with colonoscopy. [place], [place] REPORT OF CONSULTATION NAME: SEYMOUR BUENROSTRO UNIT #: [id number] ROOM: 419 DOCTOR: DAMASO CLARK MD BIRTHDATE: [birth year] DAMASO CLARK MD CM:CONSTR:REPORT OF CONSULTATION 1153 08/06/19 0955 interface
--- NOTE | ~2019-07-20 | PR ---
[place], [place] PROGRESS NOTE NAME: SEYMOUR BUENROSTRO [facility] #: [id number] UNIT #: [id number] ROOM: 419 DOCTOR: TOM TRUJILLO MD BIRTHDATE: [birth year] DOS: 07/26/2019 SUBJECTIVE: The patient is doing fine without any new complaints. He still has some minimal abdominal discomfort. He has had a couple of bowel movements since yesterday. OBJECTIVE: VITAL SIGNS: Graphic trend shows a pressure 130/70, pulse of 70, respirations 18, temperature 98.3. LUNGS: Clear. HEART: Regular. ABDOMEN: Obese, soft. Slightly distended, but is nontender this morning when compared to Friday morning when I saw him, there is definitely some improvement. LABORATORY DATA: His white cell count also has normalized to 9.0. ASSESSMENT AND PLAN: 1. Acute diverticulitis, improving clinically. White cell count also has normalized. 2. Obstipation, improving. 3. Dizziness with adult failure to thrive with negative carotid angiogram and CT of the head. The patient is awaiting SNF placement. Social Service will be consulted since PT has recommended SNF placement. 4. Benign hypertension, controlled. TOM TRUJILLO MD CM:PRADEEP 7 TOM TRUJILLO MD 07/26/19917 interface
--- NOTE | ~2019-07-20 | O ---
[place], [place] OPERATIVE NOTE NAME: PORTERSEYMOUR Tobias UNIT #: [id number] ROOM: 419 DOCTOR: AMBER SNEED,DAMASO BIRTHDATE: [birth year] DOS: 07/21/2019 GASTROENDOSCOPIC REPORT SUBJECTIVE: The patient has presented with chief complaint of constipation, blood in stool, epigastric distress, guaiac positivity. PROCEDURE #1: Today's procedure part of investigation is panendoscopy and colonoscopy. PREMEDICATION: Propofol. SCOPE: Olympus forward-viewing gastroscope Q10 video. REPORT: After putting the patient in left lateral position and application of lubricant to rectal pouch and digital examination, scope was introduced. Thereafter, under direct visualization, advanced through the length of esophagus. A small hiatal hernia seen. Gastric pouch was entered. Gastritis, gastric erosion and linear small antral ulcers, photographed, biopsy was obtained from margin of ulcer. Duodenal bulb, second part consistent with severe duodenitis. Air was suctioned out. The patient was extubated, tolerated the procedure well. IMPRESSION: Diverticulosis, antral erosion, gastritis, linear gastric ulcers, status post biopsy, hiatal hernia. PLAN AND DISCUSSION: Protonix 40 mg daily. We are going to proceed with colonoscopy. The patient has presented with blood in stool, undergoing investigation. PROCEDURE #2: Today's procedure part of investigation is colonoscopy. PREMEDICATION: Propofol. SCOPE: Olympus forward-viewing colonoscope 10L video. DESCRIPTION OF PROCEDURE: After putting the patient in left lateral position and application of lubricant to the scope, scope was introduced. Thereafter, under direct visualization, advanced through the length of colon with difficulty. Retained solid stool throughout the colon was appreciated. The visualization impractical passing mid transverse colon. Therefore, we are going to prep the colonoscopy for Friday again and complete colonoscopy is going to be reported. [place], [place] OPERATIVE NOTE NAME: SEYMOUR BUENROSTRO UNIT #: [id number] ROOM: 419 DOCTOR: DAMASO CLARK MD BIRTHDATE: [birth year] DAMASO CLARK MD CM:OPRECORD:OPERATIVE NOTE [id number] DAMASO CLARK MD 07/21/19 1331 interface
--- NOTE | ~2019-07-20 | CON ---
[place], [place] REPORT OF CONSULTATION NAME: SEYMOUR BUENROSTRO UNIT #: [id number] ROOM: 419 DOCTOR: DONTE PALAFOX MD BIRTHDATE: [birth year] DOS: 07/25/2019 REASON FOR CONSULTATION: Leukocytosis. CHIEF COMPLAINT: Constipation. HISTORY OF PRESENT ILLNESS: This is a 68-year-old male who presented with almost 2 weeks history of constipation and some bleeding per rectum, underwent an EGD and colonoscopy that shows mild active chronic gastritis with organizing fibrosis, colonoscopy results not back. The patient did address that he had fever, chills prior to the presentation. CT scan of abdomen and pelvis done without contrast showed signs of acute diverticulitis involving the mid sigmoid colon. Initial x-ray abdomen was suggestive of large amount of stool in the colon. On review of his labs initially he had no leukocytosis; however, since yesterday, he has a WBC count of 17.2 and does have a differential with increased neutrophilic count. Hemoglobin is stable. Antibiotics valencia, the patient is on ciprofloxacin plus metronidazole since admission. He denies having any fever, chills, no nausea or vomiting, just complains of pain in abdomen. PAST MEDICAL HISTORY: Diverticulosis, coronary artery disease, cardiomyopathy, hypothyroidism, dizziness, hypertension, hyperlipidemia, atrial fibrillation, Alzheimer's. MEDICATIONS: Reviewed. SOCIAL HISTORY: Nonsmoker, nonalcoholic. ALLERGIES: DILANTIN. Does not recall others. FAMILY HISTORY: Noncontributory. REVIEW OF SYSTEMS: A 12-point review of systems has been done. Pertinent negative positive included in HPI, rest are noncontributory. PHYSICAL EXAMINATION: VITAL SIGNS: Stable. GENERAL: The patient is alert, oriented x 3, not in acute distress. HEENT: Atraumatic, normocephalic. PERRLA, EOMI. RESPIRATORY: Air entry bilaterally equal. No wheeze or crackles. CARDIOVASCULAR: S1, S2 normal, no murmurs, rubs or gallops. ABDOMEN: Diffusely tender mostly on the left lower quadrant, slight increase in the bowel movements. No guarding or rigidity. EXTREMITIES: No pedal edema. NEUROLOGIC: Grossly intact. LABORATORY DATA AND IMAGING: Reviewed, mentioned in HPI. ASSESSMEN: 1. Acute diverticulitis. [place], [place] REPORT OF CONSULTATION NAME: SEYMOUR BUENROSTRO UNIT #: [id number] ROOM: 419 DOCTOR: DONTE PALAFOX MD BIRTHDATE: [birth year] 2. Gastritis/gastrointestinal bleed. 3. Leukocytosis, likely through gastrointestinal bleed/reactive/volume contraction as well as sepsis. PLAN: At this time, okay to continue ciprofloxacin plus metronidazole. Start IV fluids. The patient is volume contracted because of his GI bleed, gastritis as well as diverticulitis as well as post-colonoscopy EGD. He has shown a rise in his white count. For now, continue to monitor. If his abdomen becomes more tender, consider a repeat CT abdomen. Gastroenterology is already following. Appreciate their recs as well. Thank you for your consult. Dr. Navarrete will follow the patient closely. Donte Palafox MD CM:CONSTR:REPORT OF CONSULTATION 0834 07/25/19 2137 interface
--- NOTE | ~2019-07-20 | PR ---
[place], [place] PROGRESS NOTE NAME: SEYMOUR BUENROSTRO [facility] #: [id number] UNIT #: [id number] ROOM: 419 DOCTOR: TOM TRUJILLO MD BIRTHDATE: [birth year] DOS: 07/28/2019 SUBJECTIVE: The patient has minimal swelling in the legs, but does not feeling too bad. His abdominal pain is much better. OBJECTIVE: VITAL SIGNS: Blood pressure is 141/61, pulse of 64, respirations 20, temperature 98.1. LUNGS: Clear. HEART: Regular. ABDOMEN: Soft. EXTREMITIES: Without any edema. LABORATORY DATA: White cell count is still normal. ASSESSMENT AND PLAN: 1. Acute diverticulitis, improving. His white cell count is normal. He does not have any fever. The plan therefore is to discharge him on p.o. medications. 2. Recent endoscopy with gastritis. Continue Protonix. The patient will have a colonoscopy as an outpatient. 3. Adult failure to thrive with increased risk of falls. Refused usp. Visiting nurses will be seeing him. 4. Polypharmacy with multiple anxiety medications, which will be readjusted today before discharge. There is also increases risk of his falls. TOM TRUJILLO MD CM:PNTRANS 0833 [id number] TOM TRUJILLO MD 07/28/19 1316 interface
--- NOTE | ~2019-07-20 | PR ---
[place], [place] PROGRESS NOTE NAME: SEYMOUR BUENROSTRO [facility] #: [id number] UNIT #: [id number] ROOM: 419 DOCTOR: TOM TRUJILLO MD BIRTHDATE: [birth year] DOS: 07/27/2019 SUBJECTIVE: The patient is resting comfortably, does not have any new complaints. His abdominal pain is improved. He did have a good diet yesterday started and he is eating well. OBJECTIVE: VITAL SIGNS: Pressure is 142/67, pulse of 72, respirations 20, temperature 98.2. LUNGS: Clear. HEART: Regular. ABDOMEN: Obese, soft, nontender. EXTREMITIES: Without any edema. ASSESSMENT AND PLAN: 1. Acute diverticulitis. 2. Sepsis pattern with elevated white cell count of 20,000 on 07/24/2019, this has slowly come down and has normalized. The patient's IV fluids will be discontinued. 3. Adult failure to thrive with repeated falls. Physical therapy did advice SNF placement, the patient is so far refusing. Discussed with him again today along with his . The plan therefore is to discharge him to home tomorrow if he continues to remain stable. 4. Abdominal pain with endoscopy showing gastric ulcer. The patient is on proton pump inhibitors. 5. Benign hypertension, controlled. TOM TRUJILLO MD CM:PNTRANS 0829 TOM TRUJILLO MD 07/27/19 0839 interface
--- NOTE | ~2019-07-20 | WRIGHTHP ---
[place], [place] PATIENT HISTORY AND PHYSICAL EXAM NAME: SEYMOUR BUENROSTRO [facility] #: [id number] UNIT #: [id number] ROOM: 419 DOCTOR: TOM TRUJILLO MD BIRTHDATE: [birth year] DOS: 07/20/2019 HISTORY OF PRESENT ILLNESS: The patient is very well known to us, came in for the routine appointment on the day of admission with complaints of abdominal discomfort and lack of bowel movement for about 11 days. The patient states he is not nauseous, so he does not have any upset stomach. He has diffuse abdominal pain and also is afraid of her GI bleed from straining. He denies having any chest pains, palpitations, does not have any fever or chills. He has been dizzy and has had multiple falls. PAST MEDICAL HISTORY: Significant for, 1. Diverticulosis. 2. Coronary artery disease, status post CABG. 3. Cardiomyopathy, status post AICD placement. 4. Benign hypertension. 5. Mixed hyperlipidemia. 6. Hypothyroidism. 7. Generalized anxiety disorder. 8. Paroxysmal atrial fibrillation, on long-term use of anticoagulants. 9. Alzheimer's dementia, early onset. MEDICATIONS: That he is currently on are amitriptyline 25 at bedtime, BuSpar 5 t.i.d., Xanax 0.5 daily p.r.n., Synthroid 75 mcg daily, metoprolol 25 b.i.d., propafenone 225 b.i.d., Seroquel 400 at bedtime, Requip 1 mg at bedtime, trazodone 150 at bedtime, zolpidem 10 at bedtime p.r.n. SOCIAL HISTORY: Nonsmoker. Does not use any alcohol. Lives at home with his . PHYSICAL EXAMINATION: GENERAL: He is awake and alert and oriented, in no distress. VITAL SIGNS: Graphic trend shows a pressure of 100/61, pulse of 70, respirations 18, temperature 97.4. LUNGS: Diminished breath sounds. No wheezes, rales or rhonchi heard. HEART: Regular. ABDOMEN: Obese, soft, nontender. EXTREMITIES: Without any edema. ASSESSMENT AND PLAN: 1. Obstipation. The patient has been admitted. Intravenous fluids ordered. Acute abdominal series ordered as well as consultation with Dr. Limon for endoscopy and colonoscopy. 2. Benign hypertension. Pressures are running on the low side. We will discontinue metoprolol for right now. 3. IV fluids have been ordered. 4. Repeated falls with dizziness. Carotid Doppler, CT of the head is ordered. 5. Hypothyroidism. Continue levothyroxine. [place], [place] PATIENT HISTORY AND PHYSICAL EXAM NAME: SEYMOUR BUENROSTRO UNIT #: [id number] ROOM: [facility] DOCTOR: TOM TRUJILLO MD BIRTHDATE: [birth year] TOM TRUJILLO MD CM:HISPHYS:PATIENT HISTORY AND PHYSICAL EXAMINATION 6 1 TOM TRUJILLO MD 07/21/19901 interface
--- NOTE | ~2019-07-20 | PR ---
[place], [place] PROGRESS NOTE NAME: SEYMOUR BUENROSTRO [facility] #: [id number] UNIT #: [id number] ROOM: 419 DOCTOR: TOM TRUJILLO MD BIRTHDATE: [birth year] DOS: 07/22/2019 SUBJECTIVE: The patient states that his abdominal pain is less today. He is having hard time with bowel movements. OBJECTIVE EXAMINATION: GENERAL: He is awake and alert and oriented. VITAL SIGNS: Blood pressure is 126/45, pulse of 81, respirations 18, temperature 98.1. LUNGS: Clear. HEART: Regular. ABDOMEN: Obese, soft, nontender. EXTREMITIES: Without any edema. ASSESSMENT AND PLAN: 1. Obstipation still in the process of getting cleaned out. Discussed with Dr. Limon in the morning. Repeat colonoscopy pending tomorrow. 2. Dizziness with multiple falls, carotid atherosclerosis was noted. CT of the carotids was done, which again showed atherosclerotic, but 50% stenosis. No operable stenosis was seen. 3. Benign hypertension. Pressure was on the low. I discontinued his Lopressor yesterday morning and his pressures are starting to go up, we will restart the medication. TOM TRUJILLO MD CM:PNFLETCHER 1 9 TOM TRUJILLO MD 07/22/1911 interface
--- NOTE | ~2019-07-20 | PR ---
[place], [place] PROGRESS NOTE NAME: SEYMOUR BUENROSTRO [facility] #: [id number] UNIT #: [id number] ROOM: 419 DOCTOR: BHAVIN ROCA MD BIRTHDATE: [birth year] DOS: 07/24/2019 SUBJECTIVE: The patient with acute diverticulitis and abdominal pains, starting to feel better. OBJECTIVE: VITAL SIGNS: Blood pressure 112/53, heart rate 82 beats per minute, breathing 17 times per minute, temperature 98.5 degrees Fahrenheit. GENERAL APPEARANCE: The patient is alert and oriented x 3, in no visible distress. HEENT AND NECK: Exam within normal limits. CARDIOVASCULAR SYSTEM: Heart rate is regular in rate and rhythm. S1 and S2 normally audible. LUNGS: Clear to auscultation. ABDOMEN: Soft, nontender. No obvious organomegaly. Bowel sounds are present. EXTREMITIES: Without significant cyanosis or edema. IMPRESSION: 1. The patient with acute diverticulitis being treated. She still has lower abdominal pain and tenderness, although she is starting to feel better. 2. Benign essential hypertension. The patient is on Lopressor. Blood pressure is being monitored and treated. 3. Significant constipation, resolved with treatment. 4. Hypothyroidism, replaced with levothyroxine. 5. Chronic primary insomnia, treated with trazodone. 6. The patient with a white cell count of 20,000. I am consulting ID to follow her and I will add Flagyl to the treatment. BHAVIN ROCA MD CM:PNTRANS [id number] BHAVIN ROCA MD 07/24/19 2338 interface
--- NOTE | ~2019-07-20 | CON ---
[place], [place] REPORT OF CONSULTATION NAME: SEYMOUR BUENROSTRO UNIT #: [id number] ROOM: 419 DOCTOR: AFSHAN PALAFOX MD BIRTHDATE: [birth year] DOS: 07/25/2019 ADDENDUM I agree with the assessment and plan made by the nurse practitioner, Crys Parada. I reviewed the labs and imaging, made the necessary changes in the note. Afshan Palafox MD CM:CONSTR:REPORT OF CONSULTATION 1453 07/31/19 0005 interface
[2019-07-20] MEDS ORDERED: AMBIENPAK10 MG PO (14:19)
--- NOTE | 2019-07-20 14:40 | NUR ---
CCADMA 68, admitted to , under the services of TOM Bryan MD with a diagnosis of HTN. Chief complaint is DENIES. Patient arrived via wheel chair from [place]. Monitor applied. Initial assessment completed. Vital signs taken and recorded. TOM BRYAN MD notified of admission to the unit. Orders received. See assessment for past medical history, medications and allergies. Patient and/or family oriented to unit. [facility]. Clothing/patient valuable form completed. AWILDA CUETO
[2019-07-20 15:44] LABS: BASO # 0.1 10*3/uL (0.0-0.1); BASO % 0.9 % (0.0-1.0); EOS # 0.4 10*3/uL (0.0-0.4); EOS % 4.2 % (1.0-4.0); HEMATOCRIT 35.4 % (42.0-52.0); HEMOGLOBIN 11.3 g/dl (14.0-18.0); LYMPH # 2.5 10*3/uL (1.3-4.4); MEAN CELL VOLUME 86.8 fl (80.0-94.0); MEAN CORPUSCULAR HGB 27.7 pg (27.0-31.0); MEAN CORPUSCULAR HGB CONC 31.9 g/dl (33.0-37.0); MEAN PLATELET VOLUME 8.7 fl (9.6-12.3); MONO # 1.1 10*3/uL (0.1-1.0); MONO % 11.6 % (3.0-9.0); NEUT # 5.1 10*3/uL (2.3-7.9); NEUT % 55.5 % (47.0-73.0); PLATELET COUNT AUTOMATED 340 10*3/uL (130-400); RED BLOOD COUNT 4.08 10*6/uL (4.50-5.90); WHITE BLOOD COUNT 9.1 10*3/uL (4.8-10.8)
[2019-07-20 16:00] VITALS: BP 160/78
--- NOTE | 2019-07-20 16:00 | NUR ---
DR. STONE NOTIFIED OF CONSULT.
[2019-07-20 16:11] LABS: ALBUMIN 3.1 gm/dl (3.1-4.5); ALKALINE PHOSPHATASE 87 U/L (45-117); BUN 11 mg/dl (7-24); CHLORIDE 104 mmol/L (98-107); CREATININE 0.97 mg/dL (0.70-1.30); POTASSIUM 3.9 mmol/L (3.5-5.1); SGOT/AST 53 IU/L (3-35); SGPT/ALT 61 U/L (12-78); SODIUM 137 mmol/L (136-145); TOTAL PROTEIN 7.7 gm/dL (6.4-8.2)
[2019-07-20 20:00] VITALS: BP 162/80
[2019-07-21] VITALS (8 sets, daily range): BP systolic 100–190; BP diastolic 41–90
--- NOTE | 2019-07-21 10:00 | NUR ---
[employer] Assistant Football Coach in to talk to patient. Patient states lives at home with his . There are 0 steps in the home. Physician: Dr. Jeanette Rodriguez Pharmacy: [facility] Home health services: none Patient's level of ADLs: MINIMAL ASSIST Patient has working utilities: yes DME: walker, c-pap (states he doesn't use) Follow-up physician's appointment after d/c: he prefers to make his own follow up appt after discharge Does patient want to access PORTAL?: no Discharge plan discussed with patient. He lives at home with his . He is independent in his ADLs and ambulates with a walker. He states he has a c-pap at home but doesn't use it. Discussed home health care services and he denies any home needs at this time. When medically stable he will be discharged to home. His will transport on discharge. ROBERTO SIMS
--- NOTE | 2019-07-21 11:29 | NUR ---
Faxed clinical to Holly at the [place] as requested, .
--- NOTE | 2019-07-21 11:31 | NUR ---
OFF FLOOR TO SURGERY.
--- NOTE | 2019-07-21 15:10 | NUR ---
DILAUDID GIVEN FOR C/O ABDM. PAIN ELATED TO CONSTIPATION. WILL MONITOR.
--- NOTE | 2019-07-21 16:15 | NUR ---
DILAUDID EFFECTIVE PER PT.
--- NOTE | 2019-07-21 20:16 | NUR ---
NOTIFIED DR. ROCA OF PATIENTS HIGH BLOOD PRESSURE, 182/86. TOLD TO GIVE 5MG NORVASC NOW AND DAILY. WILL CONTINUE TO MONITOR.
--- NOTE | 2019-07-21 23:58 | NUR ---
PATIENT MEDICATED WITH DILAUDID FOR COMPLAINTS OF ABDOMINAL PAIN. RATES 07/10. WILL CHECK EFFECTIVENESS.
[2019-07-22] VITALS: BP 175/85
--- NOTE | 2019-07-22 02:00 | NUR ---
PATIENT SLEEPING. MEDICATIONS EFFECTIVE. RESPIRATIONS EASY, NON LABORED. HR IN THE 70S PER POOL HALL INSPECTOR. BED IN LOWEST POSITION, CALL LIGHT WITHIN REACH, BED ALARM IN.
[2019-07-22 04:00] VITALS: BP 126/45
[2019-07-22 08:00] VITALS: BP 142/72
--- NOTE | 2019-07-22 10:39 | NUR ---
NOTIFIED DR. CLARK THAT CT OF THE ABDOMEN CAME BACK, DIVERTICULITIS. PER HIM NO SCOPE IN THE MORNING.
[2019-07-22 11:12] LABS: BASO # 0.1 10*3/uL (0.0-0.1); BASO % 0.5 % (0.0-1.0); EOS # 0.3 10*3/uL (0.0-0.4); EOS % 3.1 % (1.0-4.0); HEMATOCRIT 34.7 % (42.0-52.0); HEMOGLOBIN 11.2 g/dl (14.0-18.0); LYMPH # 1.5 10*3/uL (1.3-4.4); LYMPH % 14.1 % (27.0-41.0); MEAN CELL VOLUME 86.5 fl (80.0-94.0); MEAN CORPUSCULAR HGB 27.9 pg (27.0-31.0); MEAN CORPUSCULAR HGB CONC 32.3 g/dl (33.0-37.0); MEAN PLATELET VOLUME 8.7 fl (9.6-12.3); MONO # 1.2 10*3/uL (0.1-1.0); MONO % 10.7 % (3.0-9.0); NEUT # 7.7 10*3/uL (2.3-7.9); PLATELET COUNT AUTOMATED 333 10*3/uL (130-400); RED BLOOD COUNT 4.01 10*6/uL (4.50-5.90); RED CELL DISTRI WIDTH 14.2 % (0-14.5); WHITE BLOOD COUNT 10.8 10*3/uL (4.8-10.8)
--- NOTE | 2019-07-22 11:20 | NUR ---
PER DR. MORRIS STILL GIVE MIRALAX
[2019-07-22 12:00] VITALS: BP 133/69
--- NOTE | 2019-07-22 14:28 | NUR ---
PT C/O PAIN TO LOWER ABD OF 8/10. IV DILAUDID GIVEN AT THIST TIME. WILL CONT TO MONITOR. CALL LIGHT IN REACH.
--- NOTE | 2019-07-22 15:29 | NUR ---
IV DILAUDID EFF. WILL CONT TO MONITOR. CALL LIGHT IN REACH.
[2019-07-22 16:00] VITALS: BP 140/73
--- NOTE | 2019-07-22 16:20 | NUR ---
C/O NAUSEA. RECEIVED NEW ORDER FROM DR TRUJILLO FOR MAGDALENA AND GIVEN AT THIS TIME. WILL CONT TO MONITOR. CALL LIGHT IN REACH.
--- NOTE | 2019-07-22 17:20 | NUR ---
IV MAGDALENA EFF. WILL CONT TO MONITOR. CALL LIGHT IN REACH.
[2019-07-22 20:00] VITALS: BP 128/90
--- NOTE | 2019-07-22 21:29 | NUR ---
SPOKE WITH DR. TRUJILLO REGARDING PATIENT CARE, ORDERS RECEIVED TO GIVE THE PATIENT NS @ 70/HR FOR 48 HOURS AND TO MAINTAIN FULL LIQUID DIET.
[2019-07-23] VITALS: BP 112/50
[2019-07-23 06:19] LABS: HEMATOCRIT 35.4 % (42.0-52.0); HEMOGLOBIN 11.1 g/dl (14.0-18.0); MEAN CELL VOLUME 86.3 fl (80.0-94.0); MEAN CORPUSCULAR HGB 27.1 pg (27.0-31.0); MEAN CORPUSCULAR HGB CONC 31.4 g/dl (33.0-37.0); MEAN PLATELET VOLUME 9.4 fl (9.6-12.3); PLATELET COUNT AUTOMATED 303 10*3/uL (130-400); RED CELL DISTRI WIDTH 14.2 % (0-14.5); WHITE BLOOD COUNT 17.2 10*3/uL (4.8-10.8)
--- NOTE | 2019-07-23 06:21 | NUR ---
PATIENT GIVEN IV DILAUDID PER PT REQUEST FOR ABD PAIN RATED 8/10 AND DESCRIBED A SHARP STABBING PAIN. WILL CONTINUE TO MONITOR AND REASSESS.
[2019-07-23 06:26] LABS: ALBUMIN 2.8 gm/dl (3.1-4.5); ALKALINE PHOSPHATASE 90 U/L (45-117); BUN 7 mg/dl (7-24); CHLORIDE 106 mmol/L (98-107); CREATININE 0.96 mg/dL (0.70-1.30); POTASSIUM 3.9 mmol/L (3.5-5.1); SGOT/AST 20 IU/L (3-35); SGPT/ALT 31 U/L (12-78); SODIUM 137 mmol/L (136-145)
--- NOTE | 2019-07-23 07:05 | NUR ---
ARRIVED ON SHIFT, INTRODUCED TO PATIENT, BEDSIDE REPORT RECEIVED, WHITE BOARD UPDATED, NO NEEDS VOICED AT THIS TIME, REMINDED TO US CALL LIGHT FOR AMBULATION ASSIST.
[2019-07-23 07:51] LABS: TOTAL CELLS COUNTED 100 #CELLS
[2019-07-23 07:55] LABS: PLATELET SUFFICIENCY NORMAL (NORMAL)
--- NOTE | 2019-07-23 07:55 | NUR ---
Shift chart check completed.
[2019-07-23 08:00] VITALS: BP 113/56
--- NOTE | 2019-07-23 09:00 | NUR ---
Aircraft Skin Burnisher in to see patient. No new needs or request at this time. He denies any home needs. When medically stable he will be discharged to home.
[2019-07-23 12:00] VITALS: BP 121/57
--- NOTE | 2019-07-23 15:35 | NUR ---
MEDICATED WITH DILAUDID 0.25MG ORDERD FOR ABDOMINAL PAIN 07/10
[2019-07-23 16:00] VITALS: BP 123/53
[2019-07-23 20:00] VITALS: BP 104/71
[2019-07-24] VITALS (7 sets, daily range): BP systolic 97–139; BP diastolic 53–78
[2019-07-24 06:49] LABS: HEMATOCRIT 32.4 % (42.0-52.0); HEMOGLOBIN 10.4 g/dl (14.0-18.0); MEAN CELL VOLUME 85.9 fl (80.0-94.0); MEAN CORPUSCULAR HGB 27.6 pg (27.0-31.0); MEAN CORPUSCULAR HGB CONC 32.1 g/dl (33.0-37.0); MEAN PLATELET VOLUME 8.9 fl (9.6-12.3); PLATELET COUNT AUTOMATED 278 10*3/uL (130-400); RED BLOOD COUNT 3.77 10*6/uL (4.50-5.90); RED CELL DISTRI WIDTH 14.2 % (0-14.5)
[2019-07-24 07:07] LABS: BUN 8 mg/dl (7-24); CHLORIDE 105 mmol/L (98-107); CREATININE 0.81 mg/dL (0.70-1.30); POTASSIUM 3.9 mmol/L (3.5-5.1); SODIUM 136 mmol/L (136-145)
[2019-07-24 07:32] LABS: TOTAL CELLS COUNTED 100 #CELLS
[2019-07-24 07:33] LABS: PLATELET SUFFICIENCY NORMAL (NORMAL)
[2019-07-24 14:33] LABS: BILIRUBIN NEGATIVE (NEGATIVE); BLOOD TRACE-INTACT (NEGATIVE); CLARITY CLEAR (CLEAR); COLOR YELLOW (YELLOW); GLUCOSE NEGATIVE (NEGATIVE); KETONE NEGATIVE (NEGATIVE); LEUKO ESTERASE NEGATIVE (NEGATIVE); NITRITE NEGATIVE (NEGATIVE); PH 6.5 (5.0-9.0); SPECIFIC GRAVITY 1.015 (1.005-1.030); UROBILINOGEN 0.2 E.U./dl (0.2-1.0)
[2019-07-24 14:47] LABS: BACTERIA TRACE; EPITHELIAL CELLS 0-2; RBC 16-20 rbc/hpf (0-2)
--- NOTE | 2019-07-24 16:35 | NUR ---
DR. OLMEDO'S ANSWERING SERVICE OTIFIED OF CONSULT.
--- NOTE | 2019-07-24 19:00 | NUR ---
BEDSIDE REPORT OBTAINED FROM HAZEL. PATIENT IS AWAKE AND ALERT, VOICED NO COMPLAINTS, AT BEDSIDE. NO DISTRESS NOTED, RESP ARE ERND ON ROOM AIR. BED IS LOCKED IN LOWEST POSITION, ALARM MAINTAINED. CALL LIGHT WITHIN REACH
--- NOTE | 2019-07-24 20:00 | NUR ---
PATIENT HAD EXTRA LARGE BOWEL MOVEMENT.
--- NOTE | 2019-07-24 20:35 | NUR ---
PATIENT MEDICATED WITH DILAUDID FOR C/O ABDOMEN PAIN 06/09. WILL MONITOR
[2019-07-25] VITALS: BP 109/45
--- NOTE | 2019-07-25 01:47 | NUR ---
24 HR chart check completed.
--- NOTE | 2019-07-25 09:56 | NUR ---
PT COMPLAIN OF ABDOMINAL PAIN, DILAUDID GIVEN ORDERED, WILL MONITOR FOR EFFECTIVENESS
--- NOTE | 2019-07-25 10:00 | NUR ---
PHYSICAL THERAPY PT EVAL COMPLETED TODAY ON LEVEL 4: FULL EVALUATION TO FOLLOW. RECOMMEND PT WHILE HERE TO ADDRESS DECREASED STRENGTH, ENDURANCE, BALANCE AND THUS DECREASED FUNCTIONAL MOBILITY. PT EVAL IS MODERATE COMPLEXITY BASED ON CHART REVIEW, TEST RESULTS AND EVALUATION: [id number]. D/C RECOMMENDATIONS AT THIS TIME WOULD BE FOR SHORT TERM SNF STAY TO ADDRESS FALLS AND DECREASED BALANCE AND MOBILTY. THANK YOU FOR REFERRAL BEN BOUDREAUX PT
[2019-07-25 12:00] VITALS: BP 123/62
[2019-07-25 16:00] VITALS: BP 142/72
--- NOTE | 2019-07-25 19:30 | NUR ---
INTRODUCED TO PATIENT, BEDSIDE REPORT RECEIVED, PATIENT REQUESTED ASSIST TO BEDSIDE COMMODE, PATIENT TRANSFERED WITH ASSIST OF ONE, VERY WEAK. PATIENT REQUESTED TO SIT ON BEDSIDE COMMODE FOR A BIT. PLACED CALL LIGHT WITHIN REACH, AND INSTRUCTED PATIENT TO CALL WHEN READY. WHITEBOARD UPDATED.
[2019-07-25 20:00] VITALS: BP 127/60
--- NOTE | 2019-07-25 23:20 | NUR ---
OBTAINED OLLIE FROM RORY. PATIENT IS RESTIN IN BED, VOICED NO COMPLAINTS AT THIS TIME. NO DISTRESS NOTED, RESP ARE ERND ON ROOM AIR. BED IS LOCKED IN LOWEST POSITION, ALARM MAINTAINED. CALL LIGHT WITHIN REACH
[2019-07-26] VITALS: BP 114/58; BP 182/82
--- NOTE | 2019-07-26 01:30 | NUR ---
24 HR chart check completed.
[2019-07-26 06:53] LABS: BASO # 0.1 10*3/uL (0.0-0.1); BASO % 0.7 % (0.0-1.0); EOS # 0.4 10*3/uL (0.0-0.4); EOS % 4.8 % (1.0-4.0); HEMATOCRIT 32.1 % (42.0-52.0); HEMOGLOBIN 10.2 g/dl (14.0-18.0); LYMPH # 1.9 10*3/uL (1.3-4.4); LYMPH % 20.5 % (27.0-41.0); MEAN CELL VOLUME 85.6 fl (80.0-94.0); MEAN CORPUSCULAR HGB 27.2 pg (27.0-31.0); MEAN CORPUSCULAR HGB CONC 31.8 g/dl (33.0-37.0); MEAN PLATELET VOLUME 8.9 fl (9.6-12.3); MONO # 1.1 10*3/uL (0.1-1.0); MONO % 11.6 % (3.0-9.0); NEUT # 5.6 10*3/uL (2.3-7.9); NEUT % 61.8 % (47.0-73.0); PLATELET COUNT AUTOMATED 319 10*3/uL (130-400); RED BLOOD COUNT 3.75 10*6/uL (4.50-5.90); RED CELL DISTRI WIDTH 14.2 % (0-14.5)
[2019-07-26 08:00] VITALS: BP 130/70; BP 133/55
--- NOTE | 2019-07-26 08:00 | NUR ---
Faxed updated clinical to [facility] as requested,
[2019-07-26 12:00] VITALS: BP 129/57
--- NOTE | 2019-07-26 12:06 | NUR ---
Extractor Loader And Unloader in to see patient. at bedside. Discussed short term SNF and they would like to think about. They wish to see how he works with therapy before deciding on whether a SNF or home. She states "he falls at home and I just help him up." Discharge plan undecided at this time. Will follow after he works with therapy. Discussed facilities and they chose [facility] as it is very close to their house.
--- NOTE | 2019-07-26 13:55 | NUR ---
PHYSICAL THERAPY Patient seen this pm 1:1 for therapy visit and was resting supine in bed with his present upon therapist arrival. Patient presented with continuous IV treatment as case management nurse Jacqui arrived to observe [employer] CREAM SCOOPER treatment. Patient voices no c/o's pain and transfers supine to sit EOB with CGA x 1, tolerating static EOB sit x several minutes to collect himself. Patient completed multiple sit to stand transfers CGA, demonstrating initial standing LOB due to bouts of retrograde posture. Patient reports no dizziness or feeling light headed this session and instructed on visual fixation technique to improve focus on task. Patient also completed several standing balance ex, including eyes open/closed, 180 turns and 5-6 fwd/bkwd steps with LOB during each ex. Patient would greatly benefit from SNF to improve safe transfers, standing balance and mobility to reduce risk of falls. Patient however reported approx 3 months ago going to Outpatient therapy for evaluation but was turned away secondary to medical issues. Patient somehow left with a negative view of therapy and adamantly refuses SNF for stating " what are they going to do for me"? Therapist explained benefits of SNF to patient / and strongly encouraged him to reconsider. Patient returned to supine in bed and remained with call light, telephone and bed alarm for safety. Will continue per POC as tolerated, total treatment time 17 minutes. Vasquez Lua, ROGELIO
--- NOTE | 2019-07-26 15:07 | NUR ---
Discussed short term SNF with patient and who is at the bedside. Both are refusing SNF at this time. Discussed home health care services and he would like to think about it. Will follow up at a later time.
[2019-07-26 16:00] VITALS: BP 115/60
[2019-07-26 20:00] VITALS: BP 147/66
--- NOTE | 2019-07-26 21:58 | NUR ---
PRN MEDICATION APPEARS EFFECTIVE, PT SLEEPING
--- NOTE | 2019-07-26 23:00 | NUR ---
PRN MEDICATIO APPEARS EFFECTIVE, PT SLEEPING
[2019-07-27] VITALS: BP 142/67
[2019-07-27 06:01] LABS: BASO # 0.1 10*3/uL (0.0-0.1); BASO % 0.9 % (0.0-1.0); EOS # 0.4 10*3/uL (0.0-0.4); EOS % 5.2 % (1.0-4.0); HEMOGLOBIN 9.8 g/dl (14.0-18.0); LYMPH # 2.1 10*3/uL (1.3-4.4); LYMPH % 29.3 % (27.0-41.0); MEAN CELL VOLUME 85.2 fl (80.0-94.0); MEAN CORPUSCULAR HGB 26.9 pg (27.0-31.0); MEAN CORPUSCULAR HGB CONC 31.6 g/dl (33.0-37.0); MEAN PLATELET VOLUME 8.8 fl (9.6-12.3); MONO # 0.9 10*3/uL (0.1-1.0); MONO % 13.4 % (3.0-9.0); NEUT # 3.5 10*3/uL (2.3-7.9); NEUT % 50.6 % (47.0-73.0); PLATELET COUNT AUTOMATED 301 10*3/uL (130-400); RED BLOOD COUNT 3.64 10*6/uL (4.50-5.90)
[2019-07-27 08:00] VITALS: BP 143/64; BP 143/94
--- NOTE | 2019-07-27 09:00 | NUR ---
Field Underwriter in to see patient. His is at the bedside. Discussed short term SNF and both refuse. states he may have been okay with it if it was for 2 days but when he found out it was for 10 days he refuses. Discussed home health care services and they refuse. states she bought him a helmet because of his falling. When medically stable he will be discharged to home.
--- NOTE | 2019-07-27 12:00 | NUR ---
ASSUMED CARE FOR THIS PT AT THIS TIME. PT SITTING UP IN RECLINER CHAIR. C/O BURNING/PAIN W/URINATION. PT ADVISED OF NEGATIVE URINE CX. PT STATES THAT BM'S TODAY ARE SOFT MUSHY. PT STATES THAT HE IS STILL WEAK AND STILL HAS DIZZINESS W/CHANGE OF PLANE. PT REFUSING THERAPY IN HOUSE AND UPON D/C. ENCOURAGEMENT AND PT TEACHING GIVEN ON NEED FOR THERAPY. CALL LIGHT IN REACH. PT TEACHING GIVEN ON NEED TO CALL FOR ASSISTANCE. PT AGREEABLE.
--- NOTE | 2019-07-27 14:00 | NUR ---
Occupational Therapy evaluation completed on 4 with full eval to follow. Precautions include fall risk; unsteady in standing and unsafe with wh walker, impulsive, impaired insight,hx of multiple falls at home, pacer/defibrillator, alzheimers dementia, moderate complexity level 52249 via chart review, testing and evaluation. Recommend OT for ADL training, safety and standing balance training in functional mobility w/ wh walker and SNF to enable safe return home with . insists upon d/c home but voiced fear of his hospital stay being denied if she does not do what is recommended for d/c. OTR explained that patient would be billed for the hospital stay if he left AMA, but that we could only recommend what we think is the safest d/c plan for home and that patient and her make the final decision. OTR recommend patient go to SNF d/t impaired balance, safety, insight,and high risk of falling. insisted upon taking patient home when d/c set. wanted patient to walk down the hallway today. PT was gone for the day, therefore OTR informed nurse who agreed to allow student nurses (x2) to assist pt with iv pole and patient with wh walker. OT educated student nurse on how to assist patient with wh walker and that pt was unsteady and impulsive. Student nurses felt they understood and had no concerns. OTR informed patient's nurses aide and she was going to assist the student nurses with a w/c follow. Patient left with . Thank you. Mendy Fernández OTR/Familia
[2019-07-27 16:00] VITALS: BP 140/66
--- NOTE | 2019-07-27 16:17 | NUR ---
PHYSICAL THERAPY CO-SIGN I approve of the Physical Therapy notes written above. ROBERTO WOO PT,DPT
[2019-07-27 20:00] VITALS: BP 148/66
--- NOTE | 2019-07-27 22:14 | NUR ---
PT C/O PAIN W/URINATION STARTING IN LOWER MID ABD AND CONTINUING DOWN THROUGH PENIS. URINE CX NEGATIVE.
--- NOTE | 2019-07-27 23:33 | NUR ---
24 HOUR CHART CHECK DONE
[2019-07-28] VITALS: BP 152/82
[2019-07-28 06:16] LABS: BASO # 0.1 10*3/uL (0.0-0.1); BASO % 0.8 % (0.0-1.0); EOS # 0.4 10*3/uL (0.0-0.4); EOS % 4.1 % (1.0-4.0); HEMATOCRIT 31.6 % (42.0-52.0); HEMOGLOBIN 10.2 g/dl (14.0-18.0); LYMPH # 2.3 10*3/uL (1.3-4.4); LYMPH % 25.3 % (27.0-41.0); MEAN CELL VOLUME 83.8 fl (80.0-94.0); MEAN CORPUSCULAR HGB 27.1 pg (27.0-31.0); MEAN CORPUSCULAR HGB CONC 32.3 g/dl (33.0-37.0); MONO # 1.2 10*3/uL (0.1-1.0); MONO % 12.8 % (3.0-9.0); NEUT % 55.7 % (47.0-73.0); PLATELET COUNT AUTOMATED 363 10*3/uL (130-400); RED BLOOD COUNT 3.77 10*6/uL (4.50-5.90); RED CELL DISTRI WIDTH 13.9 % (0-14.5)
[2019-07-28 08:00] VITALS: BP 141/61
--- NOTE | 2019-07-28 08:05 | NUR ---
OT NOTE Attempted to see pt this A.M. for OT session and upon arrival pt was supine in bed asleep. Pt's at bedside and requesting to let him rest at this time. Will check back at a later time/date and continue with POC as able. HELEN Kruse/Familia
[2019-07-28] MEDS ORDERED: CIPRO500 MG PO (08:29)
[2019-07-28] MEDS ORDERED: FLAGYL500 MG PO (08:29)
[2019-07-28] MEDS ORDERED: PANTOPRAZOLE SO40 MG PO (08:29)
--- NOTE | 2019-07-28 08:43 | NUR ---
PTS IV INFILTRATED. NOTIFIED, PO LASIX ORDERED INSTEAD.
--- NOTE | 2019-07-28 09:00 | NUR ---
PHYSICAL THERAPY Patient seen this am 1;1 for therapy visit and was supine in bed following breakfast upon therapist arrival. Patient was pleasant and was joined by his this morning as patient reports no new c/o's. Patient transfers supine to sit EOB SBA and agreed to use of gait belt for safety prior to gait ex. Patient transfers sit to stand, CGA and ambulates with use of wh walker, CGA, demonstrating multiple bouts of unsteady gait pattern, LOB during speed change and Poor dynamic balance secondary to decreaed focus on task. Patient received several v/c's to improve walker safety / navigation, especially during 180 turns and demonstrates decreased gait safety when easily distracted by his surroundings. Patient would benefit from 24/7 Supervision to reduce increased risk of falling and returned to EOB sit as his nurse arrived for Meds. Patient remained under Nursing Supervision and will continue per POC as tolerated. Vasquez Lua, COOK CHILL TECHNICIAN
--- NOTE | 2019-07-28 09:18 | NUR ---
OT NOTE Pt was seen this A.M. 1:1 for 18 minute OT session. Upon arrival pt was supine in bed. Pt identified by name and and had no complaints at this time. Pt transferred supine to sit EOB with SBA. While sitting EOB pt donned B socks with CGA due to being impulsive and increasing risk of falls. Pt completed sit to stand from bed level with CGA and use of w/w for UE support. Functional mobility completed into the bathroom with Sydni and use of w/w for UE support. Throughout pt required constant verbal and tactile prompts for walker safety due to picking up off the floor, tipping onto two point versus four, and walking away without it. Pt transferred on/off standard commode with Sydni due to being impulsive and not having safe alignment with commode. Throughout mobility pt had multiple LOB due to looking around the room, being impulsive, and poor walker navigation resulting in modA to correct LOB. Pt was left sitting upright on the EOB under nurse Ayala supervision. Continue with rec D/C plan to SNF. HELEN Kruse/Familia
--- NOTE | 2019-07-28 09:55 | NUR ---
Discharge instructions reviewed with patient/family. Patient receptive and verbalizes understanding. Follow-up care arranged. Written instructions given to patient/family. PATIENT DISCHARGED BY WHEELCHAIR. LANEY HOPKINS
--- NOTE | 2019-07-29 08:25 | NUR ---
PHYSICAL THERAPY CO-SIGN I approve of the Physical Therapy notes written above. ROBERTO WOO PT,DPT
--- NOTE | 2019-07-29 08:47 | NUR ---
Faxed discharge clinical to [facility] at the [facility],
--- NOTE | 2019-07-29 15:08 | NUR ---
OCCUPATIONAL THERAPY CO-SIGN I approve of the Occupational Therapy notes written above. CHACORTA BROWN OTR/Familia
== END 2019-07-28 09:55 | disposition home or self-care (01) | DRG 378 ==
LOC: 4E 13:23
PROVIDERS: Internal Medicine; ADMIT Internal Medicine
PROC: 0DB78ZX Excision of Stomach, Pylorus, Via Natural or Artificial Opening Endoscopic, Diagnostic (ICD-10-PCS; principal; 2019-07-21)
PROC: 0DJD8ZZ Inspection of Lower Intestinal Tract, Via Natural or Artificial Opening Endoscopic (ICD-10-PCS; principal; 2019-07-21)
DX: K57.33 Diverticulitis of large intestine without perforation or abscess with bleeding (principal); I42.9 Cardiomyopathy, unspecified; K25.0 Acute gastric ulcer with hemorrhage; K29.71 Gastritis, unspecified, with bleeding; I10 Essential (primary) hypertension; E78.2 Mixed hyperlipidemia; F02.80 Dementia in other diseases classified elsewhere, unspecified severity, without behavioral disturbance, psychotic disturbance, mood disturbance, and anxiety; G30.0 Alzheimer's disease with early onset; R29.6 Repeated falls; K44.9 Diaphragmatic hernia without obstruction or gangrene; K59.09 Other constipation; F51.01 Primary insomnia; D64.9 Anemia, unspecified; R62.7 Adult failure to thrive; I25.119 Atherosclerotic heart disease of native coronary artery with unspecified angina pectoris; F41.1 Generalized anxiety disorder; E03.9 Hypothyroidism, unspecified; I48.0 Paroxysmal atrial fibrillation; Z95.810 Presence of automatic (implantable) cardiac defibrillator; Z95.1 Presence of aortocoronary bypass graft

== ENCOUNTER 2019-10-04 14:09 | Emergency (ER) | payer OTHER ==
[~2019-10-04] VITALS: Ht 167.6 cm; Wt 74.8 kg
[~2019-10-04 14:09] MED LIST changes: +AMBIENPAK10 MG PO; +CIPRO500 MG PO; +PANTOPRAZOLE SO40 MG PO
[2019-10-04 14:57] LABS: BASO # 0.1 10*3/uL (0.0-0.1); BASO % 0.7 % (0.0-1.0); EOS # 0.2 10*3/uL (0.0-0.4); EOS % 2.2 % (1.0-4.0); HEMATOCRIT 41.3 % (42.0-52.0); HEMOGLOBIN 13.2 g/dl (14.0-18.0); LYMPH % 24.3 % (27.0-41.0); MEAN CELL VOLUME 85.3 fl (80.0-94.0); MEAN CORPUSCULAR HGB 27.3 pg (27.0-31.0); MEAN PLATELET VOLUME 8.8 fl (9.6-12.3); MONO # 0.9 10*3/uL (0.1-1.0); MONO % 11.2 % (3.0-9.0); NEUT % 61.4 % (47.0-73.0); PLATELET COUNT AUTOMATED 302 10*3/uL (130-400); RED BLOOD COUNT 4.84 10*6/uL (4.50-5.90); RED CELL DISTRI WIDTH 14.6 % (0-14.5); WHITE BLOOD COUNT 8.2 10*3/uL (4.8-10.8)
[2019-10-04 15:24] LABS: BUN 10 mg/dl (7-24); CHLORIDE 102 mmol/L (98-107); CREATININE 1.03 mg/dL (0.70-1.30); SGOT/AST 23 IU/L (3-35); SGPT/ALT 38 U/L (12-78); SODIUM 137 mmol/L (136-145)
[2019-10-04 15:25] LABS: ALKALINE PHOSPHATASE 104 U/L (45-117); TOTAL PROTEIN 8.4 gm/dL (6.4-8.2)
[2019-10-04 17:30] VITALS: BP 173/87
== END 2019-10-04 19:36 | disposition home or self-care (01) ==
LOC: ED 14:09
PROVIDERS: Nurse Practitioner Family
DX: K59.00 Constipation, unspecified (principal); R11.2 Nausea with vomiting, unspecified; I25.10 Atherosclerotic heart disease of native coronary artery without angina pectoris; E78.5 Hyperlipidemia, unspecified; I10 Essential (primary) hypertension; I48.0 Paroxysmal atrial fibrillation; E03.9 Hypothyroidism, unspecified; Z88.8 Allergy status to other drugs, medicaments and biological substances; Z88.1 Allergy status to other antibiotic agents; Z79.2 Long term (current) use of antibiotics; Z79.899 Other long term (current) drug therapy; Z95.1 Presence of aortocoronary bypass graft

== ENCOUNTER 2019-10-08 14:02 | Inpatient (IN) | payer OTHER ==
[~2019-10-08] VITALS: Ht 170.2 cm; Wt 74.4 kg
[2019-10-08 14:03] VITALS: BP 168/87
[2019-10-08 15:01] LABS: BASO # 0.1 10*3/uL (0.0-0.1); BASO % 0.8 % (0.0-1.0); EOS # 0.4 10*3/uL (0.0-0.4); EOS % 4.8 % (1.0-4.0); HEMATOCRIT 37.6 % (42.0-52.0); HEMOGLOBIN 11.9 g/dl (14.0-18.0); LYMPH # 2.3 10*3/uL (1.3-4.4); MEAN CELL VOLUME 85.6 fl (80.0-94.0); MEAN CORPUSCULAR HGB 27.1 pg (27.0-31.0); MEAN CORPUSCULAR HGB CONC 31.6 g/dl (33.0-37.0); MONO # 0.9 10*3/uL (0.1-1.0); MONO % 12.1 % (3.0-9.0); NEUT # 3.7 10*3/uL (2.3-7.9); NEUT % 50.7 % (47.0-73.0); PLATELET COUNT AUTOMATED 286 10*3/uL (130-400); RED BLOOD COUNT 4.39 10*6/uL (4.50-5.90); RED CELL DISTRI WIDTH 14.5 % (0-14.5); WHITE BLOOD COUNT 7.3 10*3/uL (4.8-10.8)
[2019-10-08 15:12] LABS: ACT PARTIAL THROMBO TIME 32.8 SECONDS (20.0-32.1); INTERNATIONAL NORM RATIO 1.1 (2.0-3.5)
[2019-10-08 15:15] LABS: ALBUMIN 3.6 gm/dl (3.1-4.5); ALKALINE PHOSPHATASE 96 U/L (45-117); BUN 12 mg/dl (7-24); CHLORIDE 107 mmol/L (98-107); LIPASE 77 U/L (73-393); POTASSIUM 3.9 mmol/L (3.5-5.1); SGOT/AST 25 IU/L (3-35); SGPT/ALT 33 U/L (12-78); SODIUM 139 mmol/L (136-145); TOTAL PROTEIN 7.8 gm/dL (6.4-8.2)
[2019-10-08 15:18] LABS: TROPONIN I < 0.015 ng/ml (<0.045)
--- NOTE | 2019-10-08 16:29 | NUR ---
PT UNAWARE OF MEDS AND DOSES,PT'S SPOUSE WAS CALLED AND LEFT A MESSAGE TO GET A LIST OF RX MEDS AND BRING TO ED.
[2019-10-08 16:31] VITALS: BP 157/81
[2019-10-08 17:00] VITALS: BP 195/78
--- NOTE | 2019-10-08 17:00 | NUR ---
A 68, admitted to 5E, under the services of ARTURO Betancourt DO with a diagnosis of SYNCOPE. Chief complaint is FALLS. Patient arrived via stretcher from ER. Monitor applied. Initial assessment completed. Vital signs taken and recorded. ARTURO BETANCOURT DO notified of admission to the unit. Orders received. See assessment for past medical history, medications and allergies. Patient and/or family oriented to unit. [facility] visitation policy reviewed. Clothing/patient valuable form completed. TAMARA CHANEY
[2019-10-08] MEDS ORDERED: LIPITOR40 MG PO (17:56)
[2019-10-08] MEDS ORDERED: XARE20MG PO (17:56)
[2019-10-08 18:00] VITALS: BP 172/80
[2019-10-08] MEDS ORDERED: TRAZODONE150 MG PO (18:02)
[2019-10-08] MEDS ORDERED: VENLAFAXINE75 M1 PO (18:02)
[2019-10-08] MEDS ORDERED: QUETIAPINE FUM200 M2 PO (18:03)
[2019-10-08] MEDS ORDERED: ASPIRIN81 M1 PO (18:04)
[2019-10-08] MEDS ORDERED: AMITRIPTYLINE50 MG PO (18:05)
[2019-10-08] MEDS ORDERED: LOPRESSOR25 MG PO (18:09)
--- NOTE | 2019-10-08 18:49 | NUR ---
NOTIFIED DR CUNNINGHAM ANSWERING SERVICE REGARDING CONSULT
--- NOTE | 2019-10-08 18:50 | NUR ---
IV started right antecubital with #22 protective cath after 1 attempts. Site prepped with Chloroprep. Sterile dressing applied. Patient tolerated procedure well. MARLY MULLIGAN
[2019-10-08 20:00] VITALS: BP 160/76; BP 170/70; BP 176/77
[2019-10-09] VITALS: BP 119/68
--- NOTE | 2019-10-09 02:08 | NUR ---
24 HR chart check completed.
[2019-10-09 08:00] VITALS: BP 154/70
--- NOTE | 2019-10-09 09:50 | NUR ---
DR GUERRERO IN TO SEE PT AT THIS TIME TO DISCUSS PLAN.
[2019-10-09 12:00] VITALS: BP 157/77
[2019-10-09 16:00] VITALS: BP 134/65
--- NOTE | 2019-10-09 16:01 | NUR ---
PACER INTERROGATION COMPLETED AT THE BEDSIDE. RECEIVED CALL FROM [facility] STATING PACER/DEFIB HAS BEEN FUNCTIONING PROPERLY, NO ARRYTHMIAS NOTED.
[2019-10-09 20:00] VITALS: BP 116/70
--- NOTE | 2019-10-09 21:05 | NUR ---
PATIENT C/O PAIN IN THE BACK OF HIS NECK. MEDICATED WITH TYLENOL 1000MG PO PER PRN ORDER. WILL CONTINUE TO MONITOR.
[2019-10-10] VITALS: BP 102/49
--- NOTE | 2019-10-10 02:12 | NUR ---
24HR CHART CHECK COMPLETED
[2019-10-10 08:00] VITALS: BP 110/58
[2019-10-10 12:00] VITALS: BP 132/99
--- NOTE | 2019-10-10 14:02 | NUR ---
ORTHOSTATIC BLOOD PRESSURE RECHECKED - CALL/MESSAGE PLACED TO DR GUERRERO. PATIENT SYMPTOMATIC WITH STANDING AFTER 30 SECONDS. BLOOD PRESSURE SIGNIFICANT DROP
--- NOTE | 2019-10-10 14:22 | NUR ---
DR GUERRERO CALLED BACK AND UPDATED ON ORTHOSTATICS
[2019-10-10 16:00] VITALS: BP 143/73
[2019-10-10 16:30] LABS: BILIRUBIN NEGATIVE (NEGATIVE); BLOOD TRACE-INTACT (NEGATIVE); CLARITY CLEAR (CLEAR); COLOR YELLOW (YELLOW); GLUCOSE NEGATIVE (NEGATIVE); KETONE NEGATIVE (NEGATIVE); LEUKO ESTERASE NEGATIVE (NEGATIVE); NITRITE NEGATIVE (NEGATIVE); UROBILINOGEN 0.2 E.U./dl (0.2-1.0)
[2019-10-10 16:38] LABS: BACTERIA TRACE; EPITHELIAL CELLS 0-2; WBC 0-2 wbc/hpf (0-5)
[2019-10-10 20:00] VITALS: BP 147/74
[2019-10-11] VITALS: BP 98/79
--- NOTE | 2019-10-11 04:30 | NUR ---
DR ROCA NOTIFIED OF PATIENTS ABNORMAL MONITOR STRIP. STATES TO NOTIFY CARDIOLOGY
--- NOTE | 2019-10-11 04:37 | NUR ---
DR GUERRERO RETURNED CALL, STATES NO INTERVENTION AT THIS TIME AND CARDIOLOGY WILL VIEW IN THE MORNING.
--- NOTE | 2019-10-11 07:57 | NUR ---
Received voicemail from [facility] at the [facility] requesting clinical. Clinical faxed to [phone].
--- NOTE | 2019-10-11 08:20 | NUR ---
PT RESTING IN BED WITH HOB ELEVATED. RESP-EASY AND REGULAR. NO C/O AT THIS TIME. CALL LIGHT IN REACH. SEE SHIFT ASSESSMENT.
--- NOTE | 2019-10-11 10:30 | NUR ---
Carriage Dogger in to talk to patient. Patient states lives at home with his . There is 1 step in the home. Physician: Dr. Jeanette Rodriguez Pharmacy: [facility] and [place] Home health services: none Patient's level of ADLs: MINIMAL ASSIST Patient has working utilities: yes DME: walker, wheelchair, c-pap (states he doesn't use) Follow-up physician's appointment after d/c: he prefers to make his own follow up appt after discharge Does patient want to access PORTAL?: no Discharge plan discussed with patient. He lives at home with his . He is independent in his ADLs and ambulates with a walker. He states he has a c-pap at home but doesn't use it. Discussed home health care services and he denies any home needs at this time. When medically stable he will be discharged to home. His will provide transportation on discharge. ROBERTO SIMS
--- NOTE | 2019-10-11 11:00 | NUR ---
PT ESCORTED OFF THE FLOOR VIA WHEELCHAIR FOR STRESS TEST.
--- NOTE | 2019-10-11 11:36 | NUR ---
INFORMED CONSENT SIGNED FOR LEXISCAN STRESS TEST WITH DR. CUNNINGHAM. RESTING EKG PACED, HR 68, BP 120/68. PULSE OX 96% AND LUNGS DEMINISHED BILATERALLY. COMPLETED ONE MINUTE OF LEXISCAN PROTOCOL RECEIVING LEXISCAN 0.4MG OVER [address] CHANGES NOTED WITH NO ARRYTHMIAS. PT C/O WARM FEELING. LAST RECOVERY HR 74, BP 118/68. WAITING NUCLEAR SCANNING IN STABLE CONDIITION.
[2019-10-11 12:00] VITALS: BP 142/70
[2019-10-11] MEDS ORDERED: LEVOTHYROXINE75 MCG PO (12:55)
--- NOTE | 2019-10-11 14:54 | NUR ---
Called to room to speak with patient and his . Patient would like cardiac rehab on discharge from the hospital. Dr. Navarrete notified.
[2019-10-11 16:00] VITALS: BP 123/68
--- NOTE | 2019-10-11 16:03 | NUR ---
PHYSICAL THERAPY Venkata completed details to follow moderate level of [id number]. PT to work on transfs, strenght, gait with FWW. Recommend SNF at disharge. Will clarify with MD reg activity level given degree of Orthostatic BP's. Thank you Amrita Mendez PT
--- NOTE | 2019-10-11 16:36 | NUR ---
PHYSICAL THERAPY IN WITH PT. NO C/O AT THIS TIME. CALL LIGHT IN REACH. VISITOR AT HIS SIDE.
--- NOTE | 2019-10-11 17:30 | NUR ---
PT TOLERATED ROUTINE MED WITH NO PROBLEM. CALL LIGHT IN REACH. NO C/O AT THIS TIME. CALL LIGHT IN REACH. SEE SHIFT ASSESSMENT.
[2019-10-11 20:00] VITALS: BP 123/70
--- NOTE | 2019-10-11 20:00 | NUR ---
RESTING IN BED. RESP-EASY AND REGULAR. NO C/O AT THIS TIME. CALL LIGHT IN REACH. SEE SHIFT ASSESSMENT.
--- NOTE | 2019-10-11 21:30 | NUR ---
TOLERATED ROUTINE MED WITH NO PROBLEM. NO C/O AT THIS TIME. BED ALARM ON. CALL LIGHT IN REACH.
--- NOTE | 2019-10-11 23:39 | NUR ---
PT AWAKE IN BED. DENIES ANY PAIN/DISCOMFORT. ALSO DENIES ANY NEEDS. WILL MONITOR. BED ALARM INTACT. CALL LIGHT IN REACH.
[2019-10-12] VITALS: BP 110/70
--- NOTE | 2019-10-12 07:50 | NUR ---
PT RESTING IN BED. NO C/O AT THIS TIME. CALL LIGHT IN REACH. SEE SHIFT ASSESSMENT.
[2019-10-12 08:00] VITALS: BP 109/71
--- NOTE | 2019-10-12 10:09 | NUR ---
Spoke to Dr. Navarrete regarding PT request for an acceptable blood pressure range to be able to work with patient. Dr. Navarrete request PT work with the patient no matter what as patient needs to be moving and not just laying in bed. PT notified.
--- NOTE | 2019-10-12 10:30 | NUR ---
Sustainability Project Manager in to see patient. No new needs or request at this time. His is at the bedside. Discussed short term SNF and home health care services and they continue to refuse. When medically stable he will be discharged to home. Per multidisciplinary discharge planning meeting he remains with orthostatic hypotension. He was started on Florinef yesterday, SLOAN lakhani ordered and applied.
--- NOTE | 2019-10-12 11:10 | NUR ---
PHYSICAL THERAPY Patient seen this am 1;1 for therapy visit and was resting supine in bed upon therapist arrivall Patient identified by name / and voices no new c/o's at this time. Patient was joined by his this morning and was very pleasant. Patient baseline BP in supine 146/65 prior to supine to sit EOB transfer, Min A x 1. Patient c/o of feeling mild dizziness from sitting up too fast and instructed to slow transfer movements to improve prior history of Orthostatic Hypotension. Patient dizziness subsided within 30 seconds as seated BP 93/67 R arm. Following 3 minute seated rest, BP rechecked and recorded 140/84. Patient performed sit to stand transfer with slow rise, c/o of feeling mild light headedness which alleviated itself within 10 seconds. Standing BP 92/51 as patient tolerated several minutes static stand with use of wh walker. Patient returned to supine in bed and remained with call light, tray table, telephone and bed alarm for safety. Will continue per POC as tolerated, total treatment time 14 minutes. Vasquez Lua, INLAYER
[2019-10-12 12:00] VITALS: BP 116/60
--- NOTE | 2019-10-12 14:00 | NUR ---
TOLERATED ROUTINE MED WITH NO PROBLEM. NO C/O AT THIS TIME. CALL LIGHT IN REACH. BED ALARM ON.
[2019-10-12 16:00] VITALS: BP 143/62
--- NOTE | 2019-10-12 16:00 | NUR ---
PT RESTING IN BED WITH VISITOR AT HIS SIDE. RESP-EASY AND REGULAR. NO C/O AT THIS TIME. BED ALARM ON. SEE SHIFT ASSESSMENT. CALL LIGHT IN REACH.
[2019-10-12 20:00] VITALS: BP 125/90
[2019-10-13] VITALS: BP 84/68
[2019-10-13 02:00] VITALS: BP 124/64
--- NOTE | 2019-10-13 02:22 | NUR ---
RN DISCOVERED LOW BP CHARTED FOR MIDNIGHT VITALS. RN IN TO ROOM TO REASSESS BLOOD PRESSURE. BP NOW 124/64. HR 60S PER CM. PT ASYMPTOMATIC. WILL MONITOR.
--- NOTE | 2019-10-13 06:35 | NUR ---
PT C/O NAUSEA WITHOUT EMESIS. GINGERALE AND SODA CRACKERS PROVIDED. ATTEMPTED TO CALL FOR ANTI-NAUSEA MEDICATION. NO ANSWER. WILL ATTEMPT AGAIN.
--- NOTE | 2019-10-13 06:43 | NUR ---
CALLED BACK. NEW ORDER RECEIVED FOR ZOFRAN.
--- NOTE | 2019-10-13 07:04 | NUR ---
PT STATES HE FEELS BETTER AFTER GINGERALE & CRACKERS. STILL HAS MILD NAUSEA BUT THINKS HE CAN TAKE AM PILLS. AM MEDS GIVEN PER ORDER. IV ZOFRAN ALSO ADMINISTERED PER PRN ORDER FOR NAUSEA. WILL MONITOR EFFECTIVENESS. CALL LIGHT IN REACH. BED ALARM INTACT.
--- NOTE | 2019-10-13 07:46 | NUR ---
PT RESTING IN BED. NO DISTRESS NOTED. SEE SHIFT ASSESSMENT WILL MONITOR CALL LIGHT WITHIN REACH
[2019-10-13 08:00] VITALS: BP 110/53
--- NOTE | 2019-10-13 08:21 | NUR ---
PHYSICAL THERAPY Late entry for 10/12/19. Discussed pt BP status in meeting with staff on 10/12 Adelia HANSON from Case Management spoke with Dr. Roberts reg functional activity and BP, per MD activity as tolerated no restrictions with regards to BP dropping. Discussed with SPORTS BETTING MANAGER, will monitor BP t/o session. Amrita Mendez PT
--- NOTE | 2019-10-13 09:00 | NUR ---
Car Rental Clerk in to see patient. No new needs or request at this time. His is at the bedside. Discussed short term SNF and home health care services and they continue to refuse. When medically stable he will be discharged to home.
--- NOTE | 2019-10-13 09:15 | NUR ---
PHYSICAL THERAPY PT SUPINE IN BED WITH BED ALARM ON AND PRESENT FOR TREATMENT. PT IDENTIFIED BY NAME AND . PT AGREE TO ALL PT TREATMENT. PT PERFORMED SUPINE TO SITTING EOB WITH SBA. PT BP ONCE TO EOB 111/62. PT PERFORMED STS TO AND FROM BED TO FWW WITH SBA. PT BP ONCE IN STANDING WAS 136/65. PT ABLE TO STAND FOR 2 MIN THEN RWQUEST TO SIT. PT BP ONCE SITTING EOB WAS 151/116. ONCE PT WAS SITTING FOR 3 MINS PT BP DECREASED TO 112/57. PT PERFORMED 2ND STS FROM EOB TO FWW WITH SBA. PT BP ONCE IN STANDING 66/45 AND PT REQUESTED TO SIT AFTER 30SECS OF STANDING. PT PERFORMED STS WITH CGA PT WAS UNSTEADY AT THIS TIME. ONCE PT WAS IN SITTING AT EOB BP WAS 101/73. PT THEN PERFORMED SIT TO SUPINE AND ONCE SUPINE FOR 2MINS PT BP WAS 124/62. PT HAD NO C/O AT THIS TIME AND NO REPORT OF OTHER NEEDS. PT SUPINE IN BED WITH BED ALARM ON, PRESENT, AND CALL LIGHT IN HAND. PT SEEN 1:1 FOR 20MINS. PTS REPORTED TO THIS BRAKE LINING MAKER AT END OF SESSION THAT "AT HOME WHEN HIS BP DROP IT HEAD AND LEG SHAKE A LOT AND HE CAN NOT CONTROL THEM." EDUCATED PT AND PTS TO LET DOCTOR AND/OR NURSE KNOW ABOUT THIS. JONATHON OAKES BRAKE LINING MAKER
[2019-10-13] MEDS ORDERED: FLUDROCORTISON0.1 MG PO (11:32)
[2019-10-13 12:00] VITALS: BP 98/65
--- NOTE | 2019-10-13 12:29 | NUR ---
Discharge instructions reviewed with patient/family. Patient receptive and verbalizes understanding. Follow-up care arranged. Written instructions given to patient/family. TAMARA CHANEY
--- NOTE | 2019-10-14 08:18 | NUR ---
PHYSICAL THERAPY CO-SIGN I approve of the Physical Therapy notes written above. Amrita Mendez PT
== END 2019-10-13 12:29 | disposition home or self-care (01) | DRG 312 ==
LOC: ED 14:02 → EDHOLD 15:43 → 5E 15:43
PROVIDERS: Nurse Practitioner Family; ADMIT Internal Medicine
DX: I95.1 Orthostatic hypotension (principal); F33.1 Major depressive disorder, recurrent, moderate; K57.90 Diverticulosis of intestine, part unspecified, without perforation or abscess without bleeding; F51.01 Primary insomnia; F41.1 Generalized anxiety disorder; I11.9 Hypertensive heart disease without heart failure; G30.9 Alzheimer's disease, unspecified; F02.80 Dementia in other diseases classified elsewhere, unspecified severity, without behavioral disturbance, psychotic disturbance, mood disturbance, and anxiety; E78.5 Hyperlipidemia, unspecified; E03.9 Hypothyroidism, unspecified; D64.9 Anemia, unspecified; K25.9 Gastric ulcer, unspecified as acute or chronic, without hemorrhage or perforation; K59.00 Constipation, unspecified; I48.0 Paroxysmal atrial fibrillation; I25.10 Atherosclerotic heart disease of native coronary artery without angina pectoris; R62.7 Adult failure to thrive; R29.6 Repeated falls; Z79.01 Long term (current) use of anticoagulants; Z88.8 Allergy status to other drugs, medicaments and biological substances; Z88.1 Allergy status to other antibiotic agents; Z95.1 Presence of aortocoronary bypass graft; Z95.5 Presence of coronary angioplasty implant and graft; Z95.810 Presence of automatic (implantable) cardiac defibrillator; Z82.49 Family history of ischemic heart disease and other diseases of the circulatory system; I25.2 Old myocardial infarction; Z86.74 Personal history of sudden cardiac arrest; Z68.25 Body mass index [BMI] 25.0-25.9, adult

== ENCOUNTER 2019-12-30 12:00 | Inpatient (IN) | payer OTHER ==
[2019-12-30] VITALS (8 sets, daily range): BP systolic 129–161; BP diastolic 56–79
[~2019-12-30] VITALS: Ht 170.1 cm; Wt 76.4 kg
[~2019-12-30 12:00] MED LIST changes: +AMITRIPTYLINE50 MG PO; +FLUDROCORTISON0.1 MG PO; +LEVOTHYROXINE75 MCG PO; +QUETIAPINE FUM200 M2 PO; +VENLAFAXINE75 M1 PO; +XARE20MG PO
[2019-12-30 12:26] LABS: BASO # 0.1 10*3/uL (0.0-0.1); BASO % 0.7 % (0.0-1.0); EOS # 0.3 10*3/uL (0.0-0.4); EOS % 3.7 % (1.0-4.0); HEMATOCRIT 39.3 % (42.0-52.0); HEMOGLOBIN 12.5 g/dl (14.0-18.0); LYMPH % 23.1 % (27.0-41.0); MEAN CELL VOLUME 86.6 fl (80.0-94.0); MEAN CORPUSCULAR HGB 27.5 pg (27.0-31.0); MEAN CORPUSCULAR HGB CONC 31.8 g/dl (33.0-37.0); MEAN PLATELET VOLUME 8.8 fl (9.6-12.3); MONO % 11.4 % (3.0-9.0); NEUT # 5.2 10*3/uL (2.3-7.9); NEUT % 60.5 % (47.0-73.0); PLATELET COUNT AUTOMATED 325 10*3/uL (130-400); RED BLOOD COUNT 4.54 10*6/uL (4.50-5.90); RED CELL DISTRI WIDTH 14.4 % (0-14.5); WHITE BLOOD COUNT 8.6 10*3/uL (4.8-10.8)
--- NOTE | 2019-12-30 12:29 | NUR ---
PATIENT DENIES ANY WOUNDS A&OX4.
--- NOTE | 2019-12-30 12:30 | NUR ---
DR CARLOS NOTIFIED OF PATIENT +ORTHOSTATICS OF FEELING DIZZY UPON STANDING.
--- NOTE | 2019-12-30 12:31 | NUR ---
DR CARLOS NOTIFIED OF PATIENT HAVING MULTIPLE FALLS WITH MULTIPLE HEAD INJURIES WELL.
[2019-12-30 12:37] LABS: ACT PARTIAL THROMBO TIME 32.2 SECONDS (20.0-32.1); INTERNATIONAL NORM RATIO 1.1 (2.0-3.5)
[2019-12-30 12:46] LABS: ALBUMIN 3.6 gm/dl (3.1-4.5); ALKALINE PHOSPHATASE 81 U/L (45-117); BUN 19 mg/dl (7-24); CHLORIDE 105 mmol/L (98-107); CREATININE 1.12 mg/dL (0.70-1.30); LIPASE 82 U/L (73-393); POTASSIUM 4.4 mmol/L (3.5-5.1); SGOT/AST 27 IU/L (3-35); SGPT/ALT 44 U/L (12-78); SODIUM 136 mmol/L (136-145); TOTAL PROTEIN 8.1 gm/dL (6.4-8.2)
[2019-12-30 12:49] LABS: TROPONIN I < 0.015 ng/ml (<0.045)
[2019-12-30 14:33] LABS: BILIRUBIN NEGATIVE (NEGATIVE); BLOOD 3+ (NEGATIVE); CLARITY CLEAR (CLEAR); COLOR YELLOW (YELLOW); GLUCOSE NEGATIVE (NEGATIVE); KETONE NEGATIVE (NEGATIVE); LEUKO ESTERASE NEGATIVE (NEGATIVE); NITRITE NEGATIVE (NEGATIVE); SPECIFIC GRAVITY 1.015 (1.005-1.030); UROBILINOGEN 0.2 E.U./dl (0.2-1.0)
[2019-12-30 14:36] LABS: BACTERIA TRACE; EPITHELIAL CELLS 0-2; RBC 31-40 rbc/hpf (0-2); WBC 0-2 wbc/hpf (0-5)
--- NOTE | 2019-12-30 17:40 | NUR ---
BEDSIDE REPORT GIVEN TO WILDA HANSON AT THIS TIME. NO CHANGE IN PATIENT STATUS.
--- NOTE | 2019-12-30 17:55 | NUR ---
Time: 1754 A 69 year old MALE admitted to 5E under services of DR. CHANELLE SNEED,BHAVIN Jaquez Pt. arrived via bed from ER. Chief complaint: MULTIPLE. WILDA SOTELO A
[2019-12-30] MEDS ORDERED: RYTHMOL SR325 MG PO (18:04)
[2019-12-30] MEDS ORDERED: MIDODRINE HCL5 M1 PO (18:04)
[2019-12-30] MEDS ORDERED: ROPINIROLE HYDRO1 MG PO (18:05)
--- NOTE | 2019-12-30 21:16 | NUR ---
PATIENT RESTING IN BED. VOICES NO COMPLAINTS. BLOOD PRESSURE TAKEN MANUALLY, 148/70. RESPIRATIONS EASY, NON LABORED. NIGHT TIME MEDICATIONS GIVEN WITH SIPS OF WATER. URINAL EMPTIED WITH 400CC. BED IN LOWEST POSITION, CALL LIGHT WITHIN REACH. BED ALARM ON. WILL CONTINUE TO MONITOR.
[2019-12-31] VITALS: BP 126/60
--- NOTE | 2019-12-31 04:00 | NUR ---
PATIENT SLEEPING, NO SIGNS OF DISTRESS. RESPIRATIONS EASY,NON LABORED. BED IN LOWEST POSITION CALL LIGHT WITHIN REACH. BED ALARM ON. WILL CONTINUE TO MONITOR.
--- NOTE | 2019-12-31 07:44 | NUR ---
PHYSICAL THERAPY Screen and PT eval received will follow, thank you Amrita Mendez PT
[2019-12-31 08:00] VITALS: BP 154/86
--- NOTE | 2019-12-31 09:00 | NUR ---
Computer Technology Teacher in to talk to patient. Patient states lives at home with his . There is 1 step in the home. Physician: Dr. Jeanette Rodriguez Pharmacy: [facility] and [place] Home health services: none Patient's level of ADLs: MINIMAL ASSIST Patient has working utilities: yes DME: walker, wheelchair, c-pap (states he doesn't use) Follow-up physician's appointment after d/c: he prefers to make his own follow up appt after discharge Does patient want to access PORTAL?: no Discharge plan discussed with patient. He lives at home with his . He is independent in his ADLs and ambulates with a walker or uses a wheelchair. He states he has a c-pap at home but doesn't use it. Discussed home health care services and short term SNF and he would like CM to talk to his who will be visiting later today. ROBERTO SIMS
--- NOTE | 2019-12-31 12:49 | NUR ---
Agricultural Engineering Technician in to see patient. at bedside. Discussed with short term rehab and she would like to see how he does while here in the hospital with therapy. [facility]ed [facility] and she stated that was too far and he would not go there. Patient and are agreeable to a local facility if needed. Explained that a local facility would not be covered by the [place] he would have to use his insurance. stated she wants to see how he does here first. Discussed home health care services and she again wants to see how he does here but she has had [facility] in the past for her PICC line and would like to have them. assistant media planner notified.
[2019-12-31 16:00] VITALS: BP 117/99
--- NOTE | 2019-12-31 16:03 | NUR ---
Nursing screen and Occupational Therapy referral received. Thank you. Mendy Fernández OTr/L
--- NOTE | 2019-12-31 21:30 | NUR ---
PATIENT AWAKE, ALERT X3.LAYING IN BED. VOICES NO COMPLAINTS. RESPIRATIONS EASY,NON LABORED. NO SIGNS OF DISTRESS.BED IN LOWEST POSITION,CALL LIGHT WITHIN REACH. BED ALARM ON. WILL CONTINUE TO MONITOR.
[2020-01-01 00:06] VITALS: BP 148/67
[2020-01-01 06:20] LABS: BASO # 0.1 10*3/uL (0.0-0.1); EOS # 0.4 10*3/uL (0.0-0.4); EOS % 4.7 % (1.0-4.0); HEMATOCRIT 36.3 % (42.0-52.0); HEMOGLOBIN 11.5 g/dl (14.0-18.0); LYMPH # 2.5 10*3/uL (1.3-4.4); LYMPH % 30.2 % (27.0-41.0); MEAN CELL VOLUME 86.4 fl (80.0-94.0); MEAN CORPUSCULAR HGB 27.4 pg (27.0-31.0); MEAN CORPUSCULAR HGB CONC 31.7 g/dl (33.0-37.0); MEAN PLATELET VOLUME 9.2 fl (9.6-12.3); MONO % 11.8 % (3.0-9.0); NEUT # 4.3 10*3/uL (2.3-7.9); NEUT % 51.8 % (47.0-73.0); PLATELET COUNT AUTOMATED 297 10*3/uL (130-400); RED CELL DISTRI WIDTH 14.3 % (0-14.5); WHITE BLOOD COUNT 8.3 10*3/uL (4.8-10.8)
[2020-01-01 06:38] LABS: BUN 10 mg/dl (7-24); CHLORIDE 110 mmol/L (98-107); CREATININE 0.89 mg/dL (0.70-1.30); POTASSIUM 4.2 mmol/L (3.5-5.1); SODIUM 140 mmol/L (136-145)
[2020-01-01 08:00] VITALS: BP 149/71
[2020-01-01 16:00] VITALS: BP 143/55
--- NOTE | 2020-01-01 18:16 | NUR ---
FLEET ENEMA GIVEN, PT UNDERSTANDS. BSC AVAILABLE. PT AWARE TO CALL FOR ASSIST
--- NOTE | 2020-01-01 19:13 | NUR ---
PT HAD RESULTS FROM ENEMA, PT HAD LARGE BOWEL MOVEMENT
--- NOTE | 2020-01-01 19:55 | NUR ---
ASSISTED PATIENT FROM BEDSIDE COMMODE TO BED. PATIENT IS AAOX3. ASSESSMENT IS COMPLETE WITH NO C/O OR S/S OF DISTRESS NOTED AT THIS TIME. BED IS LOW, LOCKED, ALARMED AND CALL LIGHT IS WITHIN REACH. WILL CONTINUE TO MONITOR.
[2020-01-01 20:00] VITALS: BP 156/72
[2020-01-02] VITALS: BP 154/76
--- NOTE | 2020-01-02 03:07 | NUR ---
CHART CHECK COMPLETE.
--- NOTE | 2020-01-02 05:56 | NUR ---
PATIENT AWAKENS EASILY FOR ADMINISTRATION OF 0600 MEDICATIONS. NO C/O VOICED AT THIS TIME. CALL LIGHT IS WITHIN REACH.
[2020-01-02 06:27] LABS: BUN 7 mg/dl (7-24); CHLORIDE 110 mmol/L (98-107); CREATININE 0.87 mg/dL (0.70-1.30); POTASSIUM 4.1 mmol/L (3.5-5.1); SODIUM 140 mmol/L (136-145)
[2020-01-02 08:00] VITALS: BP 140/74
[2020-01-02] MEDS ORDERED: AMITRIPTYLINE50 MG PO (08:57)
[2020-01-02] MEDS ORDERED: MIRALAX POWDER17 G1 PO (08:57)
[2020-01-02] MEDS ORDERED: MIDODRINE HCL5 M1 PO (08:57)
--- NOTE | 2020-01-02 10:35 | NUR ---
DR. TRUJILLO AWARE THAT PATIENT WANTS TO BE DISCHARGED HOME TODAY. AGREEABLE WITH PATIENT LEAVING TODAY.
--- NOTE | 2020-01-02 10:37 | NUR ---
PT AND ARE AGREEABLE TO GOING HOME TODAY. PT DOES NOT WANT HOME HEALTH CARE OR PHYSICAL THERAPY.
--- NOTE | 2020-01-02 11:00 | NUR ---
Discharge instructions reviewed with patient/family. Patient receptive and verbalizes understanding. Follow-up care understood. Written instructions given to patient/family. iv removed, dressing applied. pt taken out for discharge via wheelchair. pt and have no questions at this time. given rx for new medications, understand new medications HEVER LEVY
--- NOTE | 2020-01-02 13:00 | NUR ---
PHYSICAL THERAPY PT EVAL COMPLETED TODAY ON LEVEL 5: FULL EVAL TO FOLLOW. RECOMMEND PT WHILE HERE TO ADDRESS DECREASED STRENGTH, ENDURANCE, BALANCE AND THUS DECREASED FUNCTIONAL MOBILITY. PT EVAL IS MODERATE COMPLEXITY: 15520. D/C RECOMMENDATIONS ARE TO RETURN TO HOME WITH HOME HEALTH. THANK YOU FOR REFERRAL. THANKS BEN PT
--- NOTE | 2020-01-04 15:31 | NUR ---
[facility] She states the patient was sent to the hospital for a 3 night stay for short term placement. Explained and patient wanted to see how patient did before deciding on placement.
== END 2020-01-02 11:00 | disposition home or self-care (01) | DRG 57 ==
LOC: ED 12:00 → 5E 16:35 → EDHOLD 16:35 → 5E 17:22
PROVIDERS: Emergency Medicine; ADMIT Internal Medicine
DX: G90.3 Multi-system degeneration of the autonomic nervous system (principal); I48.21 Permanent atrial fibrillation; F33.1 Major depressive disorder, recurrent, moderate; F51.01 Primary insomnia; F41.1 Generalized anxiety disorder; I10 Essential (primary) hypertension; I25.10 Atherosclerotic heart disease of native coronary artery without angina pectoris; R62.7 Adult failure to thrive; K59.09 Other constipation; G25.81 Restless legs syndrome; T43.215A Adverse effect of selective serotonin and norepinephrine reuptake inhibitors, initial encounter; Y92.89 Other specified places as the place of occurrence of the external cause; Z68.26 Body mass index [BMI] 26.0-26.9, adult; Z79.01 Long term (current) use of anticoagulants; E03.9 Hypothyroidism, unspecified; Z88.8 Allergy status to other drugs, medicaments and biological substances

== ENCOUNTER → 2020-04-25 | Outpatient (CLI) | payer OTHER ==
[~2020-04-25] MED LIST changes: +MIDODRINE HCL5 M1 PO; +MIRALAX POWDER17 G1 PO; +RYTHMOL SR325 MG PO
[2020-04-25 14:08] LABS: BASO # 0.1 10*3/uL (0.0-0.1); BASO % 0.8 % (0.0-1.0); EOS # 0.7 10*3/uL (0.0-0.4); EOS % 6.5 % (1.0-4.0); HEMATOCRIT 42.2 % (42.0-52.0); LYMPH # 2.3 10*3/uL (1.3-4.4); LYMPH % 21.4 % (27.0-41.0); MEAN CELL VOLUME 83.2 fl (80.0-94.0); MEAN CORPUSCULAR HGB 27.2 pg (27.0-31.0); MEAN CORPUSCULAR HGB CONC 32.7 g/dl (33.0-37.0); MEAN PLATELET VOLUME 9.1 fl (9.6-12.3); MONO % 9.5 % (3.0-9.0); NEUT # 6.7 10*3/uL (2.3-7.9); NEUT % 61.3 % (47.0-73.0); PLATELET COUNT AUTOMATED 286 10*3/uL (130-400); RED BLOOD COUNT 5.07 10*6/uL (4.50-5.90); RED CELL DISTRI WIDTH 14.3 % (0-14.5); WHITE BLOOD COUNT 10.9 10*3/uL (4.8-10.8)
[2020-04-25 14:39] LABS: ALKALINE PHOSPHATASE 94 U/L (45-117); BUN 22 mg/dl (7-24); CHLORIDE 106 mmol/L (98-107); CHOLESTEROL 131 mg/dL (<200); CREATININE 0.98 mg/dL (0.70-1.30); FREE T4 1.04 ng/dl (0.76-1.46); HDL CHOLESTEROL 50 mg/dl (40-60); LDL CHOLESTEROL 53 mg/dL (9-159); POTASSIUM 4.4 mmol/L (3.5-5.1); SGOT/AST 42 IU/L (3-35); SGPT/ALT 45 U/L (12-78); SODIUM 136 mmol/L (136-145); TOTAL PROTEIN 8.6 gm/dL (6.4-8.2); TRIGLYCERIDES 138 mg/dl (<150); VLDL CHOLESTEROL 28 mg/dL (6-40)
[2020-04-25 14:47] LABS: VITAMIN D, 25-HYDROXY 26.7 ng/mL (30-100)
== END | disposition home or self-care (01) ==
LOC: LAB 13:22
PROVIDERS: Internal Medicine
DX: Z00.00 Encounter for general adult medical examination without abnormal findings (principal); I10 Essential (primary) hypertension; E78.2 Mixed hyperlipidemia; E03.9 Hypothyroidism, unspecified; E55.9 Vitamin D deficiency, unspecified

== ENCOUNTER → 2020-05-12 | Outpatient (CLI) | payer OTHER ==
[2020-05-12 11:36] LABS: CREATININE 1.03 mg/dL (0.70-1.30)
== END | disposition home or self-care (01) ==
LOC: CT 11:00 → LAB 11:01
PROVIDERS: Nurse Practitioner Family; Radiology Diagnostic Radiology
DX: Z12.5 Encounter for screening for malignant neoplasm of prostate (principal); D71 Functional disorders of polymorphonuclear neutrophils; D40.0 Neoplasm of uncertain behavior of prostate; R31.9 Hematuria, unspecified; R53.83 Other fatigue

== ENCOUNTER 2020-06-09 10:02 | Emergency (ER) | payer OTHER ==
[~2020-06-09] VITALS: Ht 170.1 cm; Wt 73.5 kg
[2020-06-09 10:02] VITALS: BP 144/76
[2020-06-09 10:38] LABS: BASO # 0.1 10*3/uL (0.0-0.1); BASO % 0.7 % (0.0-1.0); EOS # 0.4 10*3/uL (0.0-0.4); EOS % 3.6 % (1.0-4.0); HEMATOCRIT 38.9 % (42.0-52.0); LYMPH # 2.4 10*3/uL (1.3-4.4); LYMPH % 19.6 % (27.0-41.0); MEAN CELL VOLUME 82.8 fl (80.0-94.0); MEAN CORPUSCULAR HGB CONC 31.4 g/dl (33.0-37.0); MEAN PLATELET VOLUME 8.2 fl (9.6-12.3); MONO # 1.3 10*3/uL (0.1-1.0); MONO % 11.1 % (3.0-9.0); NEUT # 7.7 10*3/uL (2.3-7.9); NEUT % 64.1 % (47.0-73.0); PLATELET COUNT AUTOMATED 327 10*3/uL (130-400); RED CELL DISTRI WIDTH 14.8 % (0-14.5)
[2020-06-09 10:51] LABS: BUN 12 mg/dl (7-24); CHLORIDE 105 mmol/L (98-107); CREATININE 1.07 mg/dL (0.70-1.30); POTASSIUM 4.1 mmol/L (3.5-5.1); SODIUM 137 mmol/L (136-145)
== END 2020-06-09 10:58 | disposition home or self-care (01) ==
LOC: ED 10:02
PROVIDERS: Emergency Medicine
DX: R55 Syncope and collapse (principal); E78.5 Hyperlipidemia, unspecified; E03.9 Hypothyroidism, unspecified; I48.0 Paroxysmal atrial fibrillation; I10 Essential (primary) hypertension; F41.9 Anxiety disorder, unspecified; F32.9 Major depressive disorder, single episode, unspecified; I25.2 Old myocardial infarction; I25.10 Atherosclerotic heart disease of native coronary artery without angina pectoris; I48.91 Unspecified atrial fibrillation; Z88.8 Allergy status to other drugs, medicaments and biological substances; Z79.899 Other long term (current) drug therapy; Z87.891 Personal history of nicotine dependence

== ENCOUNTER 2020-09-05 13:16 | Inpatient (IN) | payer OTHER ==
[~2020-09-05] VITALS: Ht 170.2 cm; Wt 75.0 kg
[2020-09-05 13:38] VITALS: BP 123/77
[2020-09-05 14:28] LABS: HEMATOCRIT 27.7 % (42.0-52.0); MEAN CORPUSCULAR HGB CONC 32.1 g/dl (33.0-37.0); MEAN PLATELET VOLUME 8.8 fl (9.6-12.3); PLATELET COUNT AUTOMATED 257 10*3/uL (130-400); RED BLOOD COUNT 3.42 10*6/uL (4.50-5.90); RED CELL DISTRI WIDTH 17.6 % (0-14.5); WHITE BLOOD COUNT 2.6 10*3/uL (4.8-10.8)
[2020-09-05 14:42] LABS: ALBUMIN 3.1 gm/dl (3.1-4.5); ALKALINE PHOSPHATASE 65 U/L (45-117); BUN 21 mg/dl (7-24); CHLORIDE 102 mmol/L (98-107); CREATININE 1.08 mg/dL (0.70-1.30); SGOT/AST 32 IU/L (3-35); SGPT/ALT 57 U/L (12-78); SODIUM 136 mmol/L (136-145); TOTAL PROTEIN 7.3 gm/dL (6.4-8.2); TROPONIN I < 0.015 ng/ml (<0.045)
[2020-09-05 14:46] LABS: TOTAL CELLS COUNTED 100 #CELLS
[2020-09-05 14:47] LABS: PLATELET SUFFICIENCY NORMAL (NORMAL)
[2020-09-05 17:37] VITALS: BP 92/64
--- NOTE | 2020-09-05 18:10 | NUR ---
A 69, admitted to 5E, under the services of TOM Bryan MD with a diagnosis of ORTHOSTATIC HYPOTENTION, SYNCOPE, DEHYDRATION. Chief complaint is DIZZINESS. Patient arrived via ambulatory from ER. Monitor applied. Initial assessment completed. Vital signs taken and recorded. TOM BRYAN MD notified of admission to the unit. Orders received. See assessment for past medical history, medications and allergies. Patient and/or family oriented to unit. visitation policy reviewed. Clothing/patient valuable form completed. DL BARRIENTOS
[2020-09-05 18:34] VITALS: BP 171/96
[2020-09-05 20:14] VITALS: BP 162/101
[2020-09-05 20:30] VITALS: BP 172/92
[2020-09-05] MEDS ORDERED: HYDROXYZINE HCL25 MG PO (20:59)
[2020-09-05] MEDS ORDERED: NORVASC5 MG PO (21:00)
--- NOTE | 2020-09-05 21:05 | NUR ---
CALLED DR TRUJILLO AND NOTIFIED HER OF PATIENT BLOOD PRESSURE 172/92 AND ALSO PATIENT WANTED SOMETHING TO HELP HIM SLEEP. DR. TRUJILLO WANTS ALL HOME MEDS HELD. OTHER MEDS ORDERED.
[2020-09-06] VITALS: BP 139/71
[2020-09-06 06:26] LABS: HEMATOCRIT 26.3 % (42.0-52.0); MEAN CELL VOLUME 81.2 fl (80.0-94.0); MEAN CORPUSCULAR HGB 26.2 pg (27.0-31.0); MEAN CORPUSCULAR HGB CONC 32.3 g/dl (33.0-37.0); MEAN PLATELET VOLUME 9.1 fl (9.6-12.3); PLATELET COUNT AUTOMATED 223 10*3/uL (130-400); RED BLOOD COUNT 3.24 10*6/uL (4.50-5.90); RED CELL DISTRI WIDTH 17.3 % (0-14.5); WHITE BLOOD COUNT 2.5 10*3/uL (4.8-10.8)
[2020-09-06 06:52] LABS: CHLORIDE 105 mmol/L (98-107); POTASSIUM 4.6 mmol/L (3.5-5.1); SODIUM 135 mmol/L (136-145)
[2020-09-06 06:57] LABS: BUN 17 mg/dl (7-24); CREATININE 0.92 mg/dL (0.70-1.30)
[2020-09-06 07:14] LABS: BASOPHILS 1 % (0-1); TOTAL CELLS COUNTED 100 #CELLS
[2020-09-06 07:15] LABS: OVALOCYTES FEW; PLATELET SUFFICIENCY NORMAL (NORMAL)
[2020-09-06 08:00] VITALS: BP 152/67
--- NOTE | 2020-09-06 08:00 | NUR ---
Neurological: awake,alert,oriented Respiratory: easy, regular,no distress Breath sounds: clear Cough: none Cardiovascular: no problem Gastrointestinal: soft Genito/Urinary: no problem Musculoskeketal: AMBULATORY DL BARRIENTOS
--- NOTE | 2020-09-06 09:00 | NUR ---
Front End Specialist in to talk to patient. Patient states lives at home with his . There is 1 step in the home. Physician: Dr. Jeanette Rodriguez Pharmacy: [facility] and [place] Home health services: none Patient's level of ADLs: MINIMAL ASSIST Patient has working utilities: yes DME: walker, wheelchair Follow-up physician's appointment after d/c: he prefers to make his own follow up appt after discharge Does patient want to access PORTAL?: no Discharge plan discussed with patient. He lives at home with his . He is independent in his ADLs and ambulates with a walker or uses a wheelchair. Discussed short term rehab reginaldo he refuses. Discussed home health care services and he is agreeable. When provided with a list of agencies he chose [facility] as he has had them in the past. When medically stable he will be discharged to home. He states his will provide transportation on discharge. ROBERTO SIMS
[2020-09-06] MEDS ORDERED: NORVASC5 MG PO (09:09)
--- NOTE | 2020-09-06 09:16 | NUR ---
Received prescription for NS @ 100 cc/hr every Friday x [address] Rodriguez. Faxed to [facility].
--- NOTE | 2020-09-06 09:22 | NUR ---
Faxed home health order to [facility]
--- NOTE | 2020-09-06 09:23 | NUR ---
Spoke to , Mahsa, regarding home IVFs. She verbalized an understanding and is able to administer. Awaiting response from [facility].
--- NOTE | 2020-09-06 09:56 | NUR ---
Spoke to Aga from [facility]. Patient is current with them for PT. Discussed the home IVFs and waiting on response from [facility]. Spoke to Crystal at [facility] intake is currently in their morning meeting. Awaiting return call.
[2020-09-06 12:00] VITALS: BP 145/70
--- NOTE | 2020-09-06 13:12 | NUR ---
DISCHARGE INSTRUCTIONS GIVEN. VERBALIZED UNDERSTANDING. DISCHARGED TO HOME WITH VIA W/C. IN STABLE CONDITIONS. NO OPEN AREA. TELE MONITOR REMOVED. MEDIPORT DEACCESSED.
--- NOTE | 2020-09-06 14:19 | NUR ---
Spoke to Fatoumata at [employer]. She is currently working on the IVFs. Benefits took a while to come back. Awaiting her return call with cost. Informed start of care would be Friday instead of Friday per [facility].
--- NOTE | 2020-09-08 10:24 | NUR ---
Per [employer] patient would have an 80% co-pay until his $3500 deductible was reached. [employer] reaching out to patient.
== END 2020-09-06 13:12 | disposition home or self-care (01) | DRG 57 ==
LOC: ED 13:16 → 5E 15:21 → EDHOLD 15:21 → 5E 16:25
PROVIDERS: Student in an Organized Health Care Education/Training Program; ADMIT Internal Medicine; ATTEND Internal Medicine
DX: G90.3 Multi-system degeneration of the autonomic nervous system (principal); I48.21 Permanent atrial fibrillation; G30.9 Alzheimer's disease, unspecified; F02.80 Dementia in other diseases classified elsewhere, unspecified severity, without behavioral disturbance, psychotic disturbance, mood disturbance, and anxiety; K59.00 Constipation, unspecified; I25.10 Atherosclerotic heart disease of native coronary artery without angina pectoris; F41.1 Generalized anxiety disorder; E78.5 Hyperlipidemia, unspecified; E03.9 Hypothyroidism, unspecified; C67.9 Malignant neoplasm of bladder, unspecified; F32.9 Major depressive disorder, single episode, unspecified; Z88.1 Allergy status to other antibiotic agents; K57.90 Diverticulosis of intestine, part unspecified, without perforation or abscess without bleeding; I48.0 Paroxysmal atrial fibrillation; E86.0 Dehydration; I10 Essential (primary) hypertension; F51.01 Primary insomnia; G25.81 Restless legs syndrome; D63.8 Anemia in other chronic diseases classified elsewhere; Z88.8 Allergy status to other drugs, medicaments and biological substances; Z85.51 Personal history of malignant neoplasm of bladder; Z95.1 Presence of aortocoronary bypass graft; Z95.810 Presence of automatic (implantable) cardiac defibrillator; Z95.5 Presence of coronary angioplasty implant and graft; Z79.899 Other long term (current) drug therapy

== ENCOUNTER → 2020-12-05 | Outpatient (CLI) | payer OTHER ==
[~2020-12-05] MED LIST changes: +HYDROXYZINE HCL25 MG PO; +NORVASC5 MG PO
== END | disposition home or self-care (01) ==
LOC: COVID19 12:35
PROVIDERS: ATTEND Internal Medicine
DX: Z20.822 Contact with and (suspected) exposure to COVID-19 (principal)

== ENCOUNTER 2021-01-01 23:40 | Emergency (ER) | payer MEDICARE, OTHER | END 2021-01-02 01:08 | disposition home or self-care (01) | LOC: ED 23:40 | DX: T83.091A Other mechanical complication of indwelling urethral catheter, initial encounter (principal); Z88.8 Allergy status to other drugs, medicaments and biological substances; Z88.1 Allergy status to other antibiotic agents; Z79.899 Other long term (current) drug therapy; Z79.82 Long term (current) use of aspirin; Z95.810 Presence of automatic (implantable) cardiac defibrillator; Z90.89 Acquired absence of other organs; Z85.51 Personal history of malignant neoplasm of bladder; Y84.8 Other medical procedures as the cause of abnormal reaction of the patient, or of later complication, without mention of misadventure at the time of the procedure; Y92.89 Other specified places as the place of occurrence of the external cause ==

== ENCOUNTER 2021-01-02 23:35 | Emergency (ER) | payer OTHER ==
[~2021-01-02] VITALS: Ht 177.8 cm; Wt 81.6 kg
[2021-01-02 23:44] VITALS: BP 170/79
== END 2021-01-03 03:15 | disposition home or self-care (01) ==
LOC: ED 23:35
DX: Z46.6 Encounter for fitting and adjustment of urinary device (principal); R10.30 Lower abdominal pain, unspecified; I10 Essential (primary) hypertension; F41.9 Anxiety disorder, unspecified; F32.9 Major depressive disorder, single episode, unspecified; I25.2 Old myocardial infarction; I48.91 Unspecified atrial fibrillation; Z88.8 Allergy status to other drugs, medicaments and biological substances; Z88.1 Allergy status to other antibiotic agents; Z79.899 Other long term (current) drug therapy; Z79.82 Long term (current) use of aspirin; Z95.0 Presence of cardiac pacemaker; Z90.89 Acquired absence of other organs; Z85.51 Personal history of malignant neoplasm of bladder

== ENCOUNTER 2021-01-15 11:14 | Inpatient (IN) | payer OTHER ==
[2021-01-15] VITALS (7 sets, daily range): BP systolic 134–165; BP diastolic 70–85
[~2021-01-15] VITALS: Ht 170.1 cm; Wt 79.0 kg
[2021-01-15 12:01] LABS: BASO % 0.3 % (0.0-1.0); EOS # 0.1 10*3/uL (0.0-0.4); HEMATOCRIT 38.2 % (42.0-52.0); LYMPH % 13.3 % (27.0-41.0); MEAN CELL VOLUME 85.1 fl (80.0-94.0); MEAN CORPUSCULAR HGB 28.5 pg (27.0-31.0); MEAN CORPUSCULAR HGB CONC 33.5 g/dl (33.0-37.0); MEAN PLATELET VOLUME 8.9 fl (9.6-12.3); MONO % 0.4 % (3.0-9.0); NEUT # 6.3 10*3/uL (2.3-7.9); NEUT % 82.8 % (47.0-73.0); PLATELET COUNT AUTOMATED 116 10*3/uL (130-400); RED BLOOD COUNT 4.49 10*6/uL (4.50-5.90); RED CELL DISTRI WIDTH 13.8 % (0-14.5); WHITE BLOOD COUNT 7.7 10*3/uL (4.8-10.8)
[2021-01-15 12:09] LABS: ACT PARTIAL THROMBO TIME 27.3 SECONDS (20.0-32.1)
[2021-01-15 12:25] LABS: ALBUMIN 2.8 gm/dl (3.1-4.5); ALKALINE PHOSPHATASE 49 U/L (45-117); BUN 27 mg/dl (7-24); CHLORIDE 106 mmol/L (98-107); CREATININE 0.88 mg/dL (0.70-1.30); POTASSIUM 3.9 mmol/L (3.5-5.1); SGOT/AST 15 IU/L (3-35); SGPT/ALT 29 U/L (12-78); SODIUM 137 mmol/L (136-145); TOTAL PROTEIN 6.3 gm/dL (6.4-8.2)
[2021-01-15 12:27] LABS: TROPONIN I < 0.015 ng/ml (<0.045)
[2021-01-15 19:54] LABS: BILIRUBIN Negative (Negative); BLOOD Negative (Negative); CLARITY Clear (Clear); COLOR Yellow (Yellow); GLUCOSE Trace (Negative); KETONE Trace (Negative); LEUKO ESTERASE Negative (Negative); NITRITE Negative (Negative); PH 5.5 (4.5-8.0); SPECIFIC GRAVITY 1.025 (1.001-1.030); UROBILINOGEN 0.2 E.U./dl (0.0-1.0)
[2021-01-15 20:09] LABS: BACTERIA TRACE
[2021-01-15] MEDS ORDERED: AMITRIPTYLINE50 MG PO (22:08)
[2021-01-15] MEDS ORDERED: Lopressor25 MG PO (22:08)
[2021-01-16] VITALS (10 sets, daily range): BP systolic 90–150; BP diastolic 40–75
[2021-01-16 06:12] LABS: BASO % 0.2 % (0.0-1.0); EOS # 0.1 10*3/uL (0.0-0.4); EOS % 2.4 % (1.0-4.0); HEMATOCRIT 32.5 % (42.0-52.0); LYMPH # 0.8 10*3/uL (1.3-4.4); LYMPH % 19.9 % (27.0-41.0); MEAN CELL VOLUME 88.1 fl (80.0-94.0); MEAN CORPUSCULAR HGB 28.5 pg (27.0-31.0); MEAN CORPUSCULAR HGB CONC 32.3 g/dl (33.0-37.0); MEAN PLATELET VOLUME 9.4 fl (9.6-12.3); NEUT # 3.1 10*3/uL (2.3-7.9); NEUT % 75.5 % (47.0-73.0); RED BLOOD COUNT 3.69 10*6/uL (4.50-5.90); RED CELL DISTRI WIDTH 14.2 % (0-14.5); WHITE BLOOD COUNT 4.1 10*3/uL (4.8-10.8)
[2021-01-16 06:14] LABS: PLATELET COUNT AUTOMATED 64 10*3/uL (130-400)
[2021-01-16 06:32] LABS: BUN 28 mg/dl (7-24); CHLORIDE 110 mmol/L (98-107); CREATININE 0.74 mg/dL (0.70-1.30); POTASSIUM 4.2 mmol/L (3.5-5.1); SODIUM 140 mmol/L (136-145)
[2021-01-17] VITALS: BP 121/56
[2021-01-17 06:09] LABS: MEAN CELL VOLUME 87.1 fl (80.0-94.0); MEAN CORPUSCULAR HGB 28.2 pg (27.0-31.0); MEAN CORPUSCULAR HGB CONC 32.4 g/dl (33.0-37.0); MEAN PLATELET VOLUME 9.8 fl (9.6-12.3); PLATELET COUNT AUTOMATED 45 10*3/uL (130-400); RED BLOOD COUNT 3.33 10*6/uL (4.50-5.90); RED CELL DISTRI WIDTH 14.1 % (0-14.5); WHITE BLOOD COUNT 2.1 10*3/uL (4.8-10.8)
[2021-01-17 06:27] LABS: BUN 21 mg/dl (7-24); CHLORIDE 112 mmol/L (98-107); CREATININE 0.78 mg/dL (0.70-1.30); POTASSIUM 4.2 mmol/L (3.5-5.1); SODIUM 138 mmol/L (136-145)
[2021-01-17 07:21] LABS: TOTAL CELLS COUNTED 100 #CELLS
[2021-01-17 07:22] LABS: PLATELET SUFFICIENCY LOW (NORMAL)
[2021-01-17 08:00] VITALS: BP 140/61
[2021-01-17 12:00] VITALS: BP 137/73
[2021-01-17 16:00] VITALS: BP 155/62
[2021-01-17 20:00] VITALS: BP 144/84
[2021-01-18] VITALS: BP 110/57
[2021-01-18 06:00] VITALS: BP 164/76
[2021-01-18 06:38] LABS: HEMATOCRIT 30.3 % (42.0-52.0); MEAN CELL VOLUME 85.6 fl (80.0-94.0); MEAN CORPUSCULAR HGB CONC 32.7 g/dl (33.0-37.0); PLATELET COUNT AUTOMATED 33 10*3/uL (130-400); RED BLOOD COUNT 3.54 10*6/uL (4.50-5.90); RED CELL DISTRI WIDTH 13.7 % (0-14.5)
[2021-01-18 06:47] LABS: BUN 15 mg/dl (7-24); CHLORIDE 113 mmol/L (98-107); CREATININE 0.72 mg/dL (0.70-1.30); SODIUM 140 mmol/L (136-145)
[2021-01-18 06:59] LABS: WHITE BLOOD COUNT 1.6 10*3/uL (4.8-10.8)
[2021-01-18 07:21] LABS: BASOPHILS 1 % (0-1); TOTAL CELLS COUNTED 100 #CELLS
[2021-01-18 07:23] LABS: PLATELET SUFFICIENCY LOW (NORMAL)
[2021-01-18 12:00] VITALS: BP 161/79
[2021-01-18 16:00] VITALS: BP 133/63
[2021-01-18 20:00] VITALS: BP 150/65
[2021-01-19] VITALS: BP 155/67
[2021-01-19 06:29] LABS: HEMATOCRIT 27.9 % (42.0-52.0); MEAN CELL VOLUME 84.5 fl (80.0-94.0); MEAN CORPUSCULAR HGB 28.2 pg (27.0-31.0); MEAN CORPUSCULAR HGB CONC 33.3 g/dl (33.0-37.0); MEAN PLATELET VOLUME 10.9 fl (9.6-12.3); RED CELL DISTRI WIDTH 13.7 % (0-14.5)
[2021-01-19 06:34] LABS: PLATELET COUNT AUTOMATED 18 10*3/uL (130-400); WHITE BLOOD COUNT 1.2 10*3/uL (4.8-10.8)
[2021-01-19 06:38] LABS: BUN 13 mg/dl (7-24); CHLORIDE 115 mmol/L (98-107); CREATININE 0.79 mg/dL (0.70-1.30); POTASSIUM 4.6 mmol/L (3.5-5.1); SODIUM 143 mmol/L (136-145)
[2021-01-19 07:38] LABS: BASOPHILS 2 % (0-1); TOTAL CELLS COUNTED 100 #CELLS
[2021-01-19 07:39] LABS: OVALOCYTES FEW; PLATELET SUFFICIENCY LOW (NORMAL)
[2021-01-19 08:00] VITALS: BP 134/55
[2021-01-19 12:00] VITALS: BP 121/53
[2021-01-19 16:00] VITALS: BP 132/46
[2021-01-19 20:00] VITALS: BP 158/72
[2021-01-20] VITALS (8 sets, daily range): BP systolic 102–149; BP diastolic 56–74
[2021-01-20 07:23] LABS: HEMATOCRIT 26.2 % (42.0-52.0); MEAN CELL VOLUME 84.5 fl (80.0-94.0); MEAN CORPUSCULAR HGB 28.4 pg (27.0-31.0); MEAN CORPUSCULAR HGB CONC 33.6 g/dl (33.0-37.0); RED CELL DISTRI WIDTH 14.1 % (0-14.5)
[2021-01-20 07:28] LABS: PLATELET COUNT AUTOMATED 5 10*3/uL (130-400); WHITE BLOOD COUNT 0.4 10*3/uL (4.8-10.8)
[2021-01-20 07:36] LABS: BUN 17 mg/dl (7-24); CHLORIDE 110 mmol/L (98-107); CREATININE 0.93 mg/dL (0.70-1.30); POTASSIUM 3.7 mmol/L (3.5-5.1); SODIUM 138 mmol/L (136-145)
[2021-01-20 08:18] LABS: PLATELET SUFFICIENCY LOW (NORMAL); TOTAL CELLS COUNTED 100 #CELLS
[2021-01-21] VITALS: BP 94/55
[2021-01-21 06:30] LABS: HEMATOCRIT 23.8 % (42.0-52.0); MEAN CELL VOLUME 83.8 fl (80.0-94.0); MEAN CORPUSCULAR HGB 28.2 pg (27.0-31.0); MEAN CORPUSCULAR HGB CONC 33.6 g/dl (33.0-37.0); MEAN PLATELET VOLUME 11.2 fl (9.6-12.3); RED BLOOD COUNT 2.84 10*6/uL (4.50-5.90); RED CELL DISTRI WIDTH 14.4 % (0-14.5)
[2021-01-21 06:34] LABS: BUN 18 mg/dl (7-24); CHLORIDE 111 mmol/L (98-107); CREATININE 0.93 mg/dL (0.70-1.30); PLATELET COUNT AUTOMATED 47 10*3/uL (130-400); POTASSIUM 3.7 mmol/L (3.5-5.1); SODIUM 141 mmol/L (136-145)
[2021-01-21 06:35] LABS: WHITE BLOOD COUNT 0.2 10*3/uL (4.8-10.8)
[2021-01-21 07:03] LABS: BILIRUBIN 2+ (Negative); BLOOD 3+ (Negative); CLARITY Cloudy (Clear); COLOR Orange (Yellow); GLUCOSE Negative (Negative); KETONE Trace (Negative); LEUKO ESTERASE 1+ (Negative); NITRITE Positive (Negative); SPECIFIC GRAVITY 1.025 (1.001-1.030)
[2021-01-21 07:27] LABS: BACTERIA 4+; RBC TNTC rbc/hpf (0-2)
[2021-01-21 07:43] LABS: TOTAL CELLS COUNTED 100 #CELLS
[2021-01-21 07:44] LABS: BURR CELLS FEW; OVALOCYTES FEW; PLATELET SUFFICIENCY LOW (NORMAL)
[2021-01-21 08:00] VITALS: BP 102/54
[2021-01-21 12:00] VITALS: BP 113/52; BP 92/51
[2021-01-21 16:00] VITALS: BP 100/52
[2021-01-21 20:00] VITALS: BP 126/64
[2021-01-22] VITALS: BP 128/58
[2021-01-22 08:00] VITALS: BP 135/67
[2021-01-22 08:43] LABS: HEMATOCRIT 22.2 % (42.0-52.0); MEAN CELL VOLUME 85.1 fl (80.0-94.0); MEAN CORPUSCULAR HGB CONC 32.9 g/dl (33.0-37.0); MEAN PLATELET VOLUME 11.5 fl (9.6-12.3); RED BLOOD COUNT 2.61 10*6/uL (4.50-5.90); RED CELL DISTRI WIDTH 14.4 % (0-14.5)
[2021-01-22 08:47] LABS: WHITE BLOOD COUNT 0.3 10*3/uL (4.8-10.8)
[2021-01-22 08:48] LABS: PLATELET COUNT AUTOMATED 29 10*3/uL (130-400)
[2021-01-22 09:27] LABS: BASOPHILS 1 % (0-1); BURR CELLS FEW; OVALOCYTES FEW; PLATELET SUFFICIENCY LOW (NORMAL); ROULEAUX SLIGHT; TOTAL CELLS COUNTED 100 #CELLS
[2021-01-22 12:00] VITALS: BP 155/66
[2021-01-22 16:00] VITALS: BP 161/63
[2021-01-22 20:00] VITALS: BP 151/65
[2021-01-22 23:40] VITALS: BP 123/63
[2021-01-23 06:40] LABS: HEMATOCRIT 22.2 % (42.0-52.0); MEAN CELL VOLUME 82.2 fl (80.0-94.0); MEAN CORPUSCULAR HGB 28.1 pg (27.0-31.0); MEAN CORPUSCULAR HGB CONC 34.2 g/dl (33.0-37.0); MEAN PLATELET VOLUME 10.9 fl (9.6-12.3); RED CELL DISTRI WIDTH 14.1 % (0-14.5)
[2021-01-23 06:46] LABS: WHITE BLOOD COUNT 0.4 10*3/uL (4.8-10.8)
[2021-01-23 06:47] LABS: PLATELET COUNT AUTOMATED 22 10*3/uL (130-400)
[2021-01-23 08:00] VITALS: BP 136/73
[2021-01-23 08:15] LABS: BURR CELLS FEW; PLATELET SUFFICIENCY LOW (NORMAL); TOTAL CELLS COUNTED 100 #CELLS
[2021-01-23 08:16] LABS: ROULEAUX SLIGHT
[2021-01-23 12:00] VITALS: BP 138/46
[2021-01-23 16:00] VITALS: BP 151/74
[2021-01-23 20:00] VITALS: BP 137/67
[2021-01-24] VITALS: BP 146/64
[2021-01-24 08:00] VITALS: BP 152/67
[2021-01-24 09:15] LABS: HEMATOCRIT 21.9 % (42.0-52.0); MEAN CELL VOLUME 82.6 fl (80.0-94.0); MEAN CORPUSCULAR HGB 27.9 pg (27.0-31.0); MEAN CORPUSCULAR HGB CONC 33.8 g/dl (33.0-37.0); MEAN PLATELET VOLUME 10.1 fl (9.6-12.3); RED BLOOD COUNT 2.65 10*6/uL (4.50-5.90); RED CELL DISTRI WIDTH 14.4 % (0-14.5)
[2021-01-24 09:17] LABS: PLATELET COUNT AUTOMATED 13 10*3/uL (130-400); WHITE BLOOD COUNT 0.4 10*3/uL (4.8-10.8)
[2021-01-24 09:45] LABS: PLATELET SUFFICIENCY LOW (NORMAL); ROULEAUX MODERATE; TOTAL CELLS COUNTED 50 #CELLS
[2021-01-24 12:00] VITALS: BP 127/63
[2021-01-24 16:00] VITALS: BP 156/73
[2021-01-24 20:00] VITALS: BP 134/77
[2021-01-25] VITALS: BP 150/67
[2021-01-25 07:13] LABS: HEMATOCRIT 22.7 % (42.0-52.0); MEAN CELL VOLUME 83.8 fl (80.0-94.0); MEAN CORPUSCULAR HGB CONC 33.5 g/dl (33.0-37.0); MEAN PLATELET VOLUME 10.7 fl (9.6-12.3); RED BLOOD COUNT 2.71 10*6/uL (4.50-5.90); RED CELL DISTRI WIDTH 14.6 % (0-14.5)
[2021-01-25 07:16] LABS: PLATELET COUNT AUTOMATED 11 10*3/uL (130-400); WHITE BLOOD COUNT 0.5 10*3/uL (4.8-10.8)
[2021-01-25 08:00] VITALS: BP 134/65
[2021-01-25 08:09] LABS: ATYPICAL LYMPHS 2 % (0-0); BASOPHILS 1 % (0-1); TOTAL CELLS COUNTED 100 #CELLS
[2021-01-25 08:10] LABS: OVALOCYTES FEW; PLATELET SUFFICIENCY LOW (NORMAL); ROULEAUX SLIGHT
[2021-01-25 10:29] LABS: ALBUMIN 1.9 gm/dl (3.1-4.5); ALKALINE PHOSPHATASE 45 U/L (45-117); BUN 16 mg/dl (7-24); CHLORIDE 110 mmol/L (98-107); CREATININE 0.64 mg/dL (0.70-1.30); POTASSIUM 3.8 mmol/L (3.5-5.1); SGPT/ALT 20 U/L (12-78); SODIUM 141 mmol/L (136-145); TOTAL PROTEIN 4.4 gm/dL (6.4-8.2)
[2021-01-25 10:40] LABS: SGOT/AST 4 IU/L (3-35)
[2021-01-25 12:00] VITALS: BP 138/70
[2021-01-25 16:00] VITALS: BP 135/68
[2021-01-25 20:00] VITALS: BP 119/68
[2021-01-25 23:51] VITALS: BP 137/77
[2021-01-26 06:56] LABS: HEMATOCRIT 23.9 % (42.0-52.0); MEAN CELL VOLUME 81.3 fl (80.0-94.0); MEAN CORPUSCULAR HGB 28.2 pg (27.0-31.0); MEAN CORPUSCULAR HGB CONC 34.7 g/dl (33.0-37.0); MEAN PLATELET VOLUME 10.7 fl (9.6-12.3); NUCLEATED RED BLOOD CELL 2.6 % (0.0-0.0); RED BLOOD COUNT 2.94 10*6/uL (4.50-5.90); RED CELL DISTRI WIDTH 14.3 % (0-14.5)
[2021-01-26 07:05] LABS: PLATELET COUNT AUTOMATED 13 10*3/uL (130-400); WHITE BLOOD COUNT 0.8 10*3/uL (4.8-10.8)
[2021-01-26 08:00] VITALS: BP 144/76
[2021-01-26 08:32] LABS: ATYPICAL LYMPHS 2 % (0-0); TOTAL CELLS COUNTED 100 #CELLS
[2021-01-26 08:33] LABS: PLATELET SUFFICIENCY LOW (NORMAL); POLYCHROMASIA SLIGHT
[2021-01-26 12:00] VITALS: BP 144/77
[2021-01-26 16:00] VITALS: BP 138/73
[2021-01-26 20:00] VITALS: BP 154/58
[2021-01-27] VITALS: BP 148/60
[2021-01-27 06:41] LABS: HEMATOCRIT 27.4 % (42.0-52.0); MEAN CELL VOLUME 82.5 fl (80.0-94.0); MEAN CORPUSCULAR HGB 27.7 pg (27.0-31.0); MEAN CORPUSCULAR HGB CONC 33.6 g/dl (33.0-37.0); NUCLEATED RED BLOOD CELL 1.6 % (0.0-0.0); RED BLOOD COUNT 3.32 10*6/uL (4.50-5.90); RED CELL DISTRI WIDTH 14.1 % (0-14.5)
[2021-01-27 06:44] LABS: WHITE BLOOD COUNT 1.2 10*3/uL (4.8-10.8)
[2021-01-27 06:45] LABS: PLATELET COUNT AUTOMATED 22 10*3/uL (130-400)
[2021-01-27 07:29] LABS: TOTAL CELLS COUNTED 100 #CELLS
[2021-01-27 07:32] LABS: BLASTS 2 % (0-0); PLATELET SUFFICIENCY LOW (NORMAL); POLYCHROMASIA SLIGHT
[2021-01-27 08:00] VITALS: BP 93/56
[2021-01-27 12:00] VITALS: BP 99/51
[2021-01-27 16:00] VITALS: BP 122/58
[2021-01-27 20:00] VITALS: BP 152/68
[2021-01-28] VITALS: BP 123/67
[2021-01-28 08:00] VITALS: BP 126/68
[2021-01-28 12:00] VITALS: BP 129/68
[2021-01-28 16:00] VITALS: BP 119/66
[2021-01-28 20:00] VITALS: BP 99/45
[2021-01-29] VITALS: BP 104/63
[2021-01-29 06:47] LABS: MEAN CELL VOLUME 84.3 fl (80.0-94.0); MEAN CORPUSCULAR HGB CONC 33.2 g/dl (33.0-37.0); MEAN PLATELET VOLUME 10.5 fl (9.6-12.3); NUCLEATED RED BLOOD CELL 0.3 10*3/uL (0.0-0.0); NUCLEATED RED BLOOD CELL 4.9 % (0.0-0.0); PLATELET COUNT AUTOMATED 77 10*3/uL (130-400); RED BLOOD COUNT 3.32 10*6/uL (4.50-5.90); RED CELL DISTRI WIDTH 14.3 % (0-14.5); WHITE BLOOD COUNT 5.9 10*3/uL (4.8-10.8)
[2021-01-29 07:28] LABS: CHLORIDE 105 mmol/L (98-107); POTASSIUM 5.2 mmol/L (3.5-5.1); SODIUM 137 mmol/L (136-145)
[2021-01-29 07:31] LABS: BUN 21 mg/dl (7-24); CREATININE 0.83 mg/dL (0.70-1.30)
[2021-01-29 07:38] LABS: PLATELET SUFFICIENCY LOW (NORMAL); POLYCHROMASIA SLIGHT; ROULEAUX SLIGHT; TOTAL CELLS COUNTED 100 #CELLS
[2021-01-29 08:00] VITALS: BP 104/68
[2021-01-29 12:00] VITALS: BP 131/64
[2021-01-29 16:00] VITALS: BP 128/67
[2021-01-29 20:00] VITALS: BP 124/63
[2021-01-30] VITALS: BP 116/61
[2021-01-30 07:13] LABS: BUN 23 mg/dl (7-24); CHLORIDE 106 mmol/L (98-107); CREATININE 0.84 mg/dL (0.70-1.30); POTASSIUM 4.9 mmol/L (3.5-5.1); SODIUM 136 mmol/L (136-145)
[2021-01-30 08:00] VITALS: BP 121/80
[2021-01-30 16:00] VITALS: BP 103/55
[2021-01-30 20:00] VITALS: BP 132/61
[2021-01-31] VITALS: BP 98/53
[2021-01-31 07:06] LABS: HEMATOCRIT 26.5 % (42.0-52.0); MEAN CELL VOLUME 86.6 fl (80.0-94.0); MEAN CORPUSCULAR HGB 28.4 pg (27.0-31.0); MEAN CORPUSCULAR HGB CONC 32.8 g/dl (33.0-37.0); NUCLEATED RED BLOOD CELL 0.3 10*3/uL (0.0-0.0); NUCLEATED RED BLOOD CELL 4.7 % (0.0-0.0); RED BLOOD COUNT 3.06 10*6/uL (4.50-5.90); RED CELL DISTRI WIDTH 14.8 % (0-14.5); WHITE BLOOD COUNT 7.2 10*3/uL (4.8-10.8)
[2021-01-31 07:08] LABS: PLATELET COUNT AUTOMATED 135 10*3/uL (130-400)
[2021-01-31 07:14] LABS: BUN 22 mg/dl (7-24); CHLORIDE 105 mmol/L (98-107); CREATININE 0.78 mg/dL (0.70-1.30); POTASSIUM 4.5 mmol/L (3.5-5.1); SODIUM 137 mmol/L (136-145)
[2021-01-31 07:53] LABS: BASOPHILS 1 % (0-1); TOTAL CELLS COUNTED 100 #CELLS
[2021-01-31 07:54] LABS: PLATELET SUFFICIENCY NORMAL (NORMAL); POLYCHROMASIA SLIGHT; ROULEAUX SLIGHT; TOXIC GRANULATION SLIGHT; VACUOLATION OF NEUTROPHILS SLIGHT
[2021-01-31 08:00] VITALS: BP 141/68
[2021-01-31 12:00] VITALS: BP 124/58
[2021-01-31] MEDS ORDERED: SEPTDS PO (13:29)
[2021-01-31] MEDS ORDERED: FLUCONAZOLE100 MG PO (13:30)
[2021-01-31] MEDS ORDERED: ACYCLOVIR400 MG PO (13:31)
== END 2021-01-31 15:33 | disposition home health service (06) | DRG 380 ==
LOC: ED 11:14 → EDHOLD 12:35 → 5E 12:35 → 4E 12:35 → EDHOLD 12:52 → 4E 20:57 → 5E 01-21 08:05
PROVIDERS: Family Medicine; Internal Medicine; Internal Medicine Gastroenterology; Nurse Practitioner; ADMIT Internal Medicine; ATTEND Internal Medicine
PROC: 0DB98ZX Excision of Duodenum, Via Natural or Artificial Opening Endoscopic, Diagnostic (ICD-10-PCS; principal; 2021-01-16)
PROC: 0DD58ZX Extraction of Esophagus, Via Natural or Artificial Opening Endoscopic, Diagnostic (ICD-10-PCS; 2021-01-16)
PROC: 30233R1 Transfusion of Nonautologous Platelets into Peripheral Vein, Percutaneous Approach (ICD-10-PCS; 2021-01-20)
DX: K22.10 Ulcer of esophagus without bleeding (principal); D61.810 Antineoplastic chemotherapy induced pancytopenia; E44.0 Moderate protein-calorie malnutrition; I48.21 Permanent atrial fibrillation; B37.81 Candidal esophagitis; K26.9 Duodenal ulcer, unspecified as acute or chronic, without hemorrhage or perforation; K29.80 Duodenitis without bleeding; K29.70 Gastritis, unspecified, without bleeding; C67.9 Malignant neoplasm of bladder, unspecified; K12.1 Other forms of stomatitis; E86.0 Dehydration; K52.9 Noninfective gastroenteritis and colitis, unspecified; Y92.89 Other specified places as the place of occurrence of the external cause; T45.1X5A Adverse effect of antineoplastic and immunosuppressive drugs, initial encounter; G25.81 Restless legs syndrome; E03.9 Hypothyroidism, unspecified; D70.9 Neutropenia, unspecified; R62.7 Adult failure to thrive; G89.29 Other chronic pain; E78.5 Hyperlipidemia, unspecified; R13.10 Dysphagia, unspecified; K44.9 Diaphragmatic hernia without obstruction or gangrene; K57.10 Diverticulosis of small intestine without perforation or abscess without bleeding; I10 Essential (primary) hypertension; Z20.822 Contact with and (suspected) exposure to COVID-19; Z68.27 Body mass index [BMI] 27.0-27.9, adult; Z88.1 Allergy status to other antibiotic agents; Z88.8 Allergy status to other drugs, medicaments and biological substances; Z95.1 Presence of aortocoronary bypass graft; Z95.0 Presence of cardiac pacemaker; Z82.49 Family history of ischemic heart disease and other diseases of the circulatory system

== ENCOUNTER 2021-05-09 14:53 | Observation (INO) | payer OTHER ==
[~2021-05-09] VITALS: Ht 170.1 cm; Wt 77.1 kg
[~2021-05-09 14:53] MED LIST changes: +ACYCLOVIR400 MG PO; +FLUCONAZOLE100 MG PO; +Lopressor25 MG PO; +SEPTDS PO
[2021-05-09 14:58] VITALS: BP 125/86
[2021-05-09] MEDS ORDERED: PROAIR HFA8.5 GM INH (15:19)
[2021-05-09] MEDS ORDERED: FLOVENT HFA12 GM INH (15:19)
[2021-05-09 15:20] LABS: BASO % 0.4 % (0.0-1.0); EOS # 0.1 10*3/uL (0.0-0.4); EOS % 1.6 % (1.0-4.0); HEMATOCRIT 32.9 % (42.0-52.0); LYMPH # 0.8 10*3/uL (1.3-4.4); MEAN CELL VOLUME 95.9 fl (80.0-94.0); MEAN CORPUSCULAR HGB 31.5 pg (27.0-31.0); MEAN CORPUSCULAR HGB CONC 32.8 g/dl (33.0-37.0); MONO # 1.3 10*3/uL (0.1-1.0); MONO % 17.9 % (3.0-9.0); NEUT # 4.7 10*3/uL (2.3-7.9); NEUT % 67.1 % (47.0-73.0); PLATELET COUNT AUTOMATED 183 10*3/uL (130-400); RED BLOOD COUNT 3.43 10*6/uL (4.50-5.90); RED CELL DISTRI WIDTH 14.8 % (0-14.5)
[2021-05-09] MEDS ORDERED: ZOLPIDEM10 MG PO (15:20)
[2021-05-09 15:45] LABS: BUN 14 mg/dl (7-24); CHLORIDE 108 mmol/L (98-107); CREATININE 1.09 mg/dL (0.70-1.30); LIPASE 40 U/L (73-393); SGOT/AST 23 IU/L (3-35); SGPT/ALT 27 U/L (12-78); SODIUM 136 mmol/L (136-145); TOTAL PROTEIN 7.2 gm/dL (6.4-8.2)
[2021-05-09 15:46] LABS: ALKALINE PHOSPHATASE 64 U/L (45-117)
[2021-05-09 15:57] LABS: TROPONIN I < 0.015 ng/ml (<0.045)
[2021-05-09 16:25] LABS: BILIRUBIN Negative (Negative); BLOOD Negative (Negative); CLARITY Clear (Clear); COLOR Yellow (Yellow); GLUCOSE Negative (Negative); KETONE Negative (Negative); LEUKO ESTERASE Negative (Negative); NITRITE Negative (Negative); SPECIFIC GRAVITY <= 1.005 (1.001-1.030); UROBILINOGEN 0.2 E.U./dl (0.0-1.0)
[2021-05-09 16:47] LABS: BACTERIA TRACE
[2021-05-09 17:40] VITALS: BP 145/74
[2021-05-09 21:05] VITALS: BP 138/70
[2021-05-09 21:30] VITALS: BP 164/70
[2021-05-10] VITALS: BP 182/62
[2021-05-10 08:00] VITALS: BP 164/71
[2021-05-10 12:00] VITALS: BP 150/50; BP 156/82
[2021-05-10 16:00] VITALS: BP 133/69
[2021-05-10 20:00] VITALS: BP 126/60
[2021-05-11] VITALS: BP 137/64
[2021-05-11] MEDS ORDERED: XARE15TA PO (05:27)
[2021-05-11 08:00] VITALS: BP 137/61
== END 2021-05-11 09:29 | disposition home health service (06) ==
LOC: ED 14:53 → EDHOLD 17:18 → 4E 17:18
PROVIDERS: Emergency Medicine; ADMIT Internal Medicine; ATTEND Internal Medicine
DX: R62.7 Adult failure to thrive (principal); Z20.822 Contact with and (suspected) exposure to COVID-19; E86.0 Dehydration; R53.1 Weakness; D09.0 Carcinoma in situ of bladder; I10 Essential (primary) hypertension; E03.9 Hypothyroidism, unspecified; E44.0 Moderate protein-calorie malnutrition; I48.21 Permanent atrial fibrillation; G25.81 Restless legs syndrome; G47.00 Insomnia, unspecified; Z95.1 Presence of aortocoronary bypass graft; Z95.0 Presence of cardiac pacemaker; Z98.890 Other specified postprocedural states

== ENCOUNTER → 2021-05-16 | Outpatient (CLI) | payer OTHER ==
[~2021-05-16] MED LIST changes: +FLOVENT HFA12 GM INH; +PROAIR HFA8.5 GM INH; +XARE15TA PO; +ZOLPIDEM10 MG PO
== END | disposition home or self-care (01) ==
LOC: LAB 13:15
PROVIDERS: ATTEND Urology
DX: Z12.5 Encounter for screening for malignant neoplasm of prostate (principal)

== ENCOUNTER → 2021-12-25 | Outpatient (CLI) | payer OTHER | END | disposition home or self-care (01) | LOC: RAD 10:45 | PROVIDERS: ATTEND Internal Medicine | DX: R06.02 Shortness of breath (principal); R05.9 Cough, unspecified ==

== ENCOUNTER 2022-04-14 10:37 | Emergency (ER) | payer OTHER ==
[~2022-04-14] VITALS: Wt 71.2 kg
[2022-04-14 12:03] LABS: BASO # 0.1 10*3/uL (0.0-0.1); BASO % 0.8 % (0.0-1.0); EOS # 0.3 10*3/uL (0.0-0.4); EOS % 3.4 % (1.0-4.0); LYMPH # 1.2 10*3/uL (1.3-4.4); LYMPH % 16.9 % (27.0-41.0); MEAN CELL VOLUME 84.2 fl (80.0-94.0); MEAN CORPUSCULAR HGB 27.2 pg (27.0-31.0); MEAN CORPUSCULAR HGB CONC 32.4 g/dl (33.0-37.0); MEAN PLATELET VOLUME 8.5 fl (9.6-12.3); MONO % 13.9 % (3.0-9.0); NEUT # 4.7 10*3/uL (2.3-7.9); NEUT % 64.6 % (47.0-73.0); PLATELET COUNT AUTOMATED 221 10*3/uL (130-400); RED BLOOD COUNT 4.04 10*6/uL (4.50-5.90); RED CELL DISTRI WIDTH 14.9 % (0-14.5); WHITE BLOOD COUNT 7.3 10*3/uL (4.8-10.8)
[2022-04-14 12:12] LABS: BILIRUBIN Negative (Negative); BLOOD 1+ (Negative); CLARITY Cloudy (Clear); COLOR Yellow (Yellow); GLUCOSE Negative (Negative); KETONE Negative (Negative); LEUKO ESTERASE 3+ (Negative); NITRITE Negative (Negative); PH 5.5 (4.5-8.0); UROBILINOGEN 0.2 E.U./dl (0.0-1.0)
[2022-04-14 12:16] LABS: ACT PARTIAL THROMBO TIME 40.9 SECONDS (20.0-32.1); INTERNATIONAL NORM RATIO 1.1 (2.0-3.5)
[2022-04-14 12:20] LABS: ALKALINE PHOSPHATASE 105 U/L (45-117); BUN 14 mg/dl (7-24); CHLORIDE 107 mmol/L (98-107); CREATININE 1.01 mg/dL (0.70-1.30); POTASSIUM 4.1 mmol/L (3.5-5.1); SGOT/AST 22 IU/L (3-35); SGPT/ALT 29 U/L (12-78); SODIUM 138 mmol/L (136-145); TOTAL PROTEIN 7.2 gm/dL (6.4-8.2)
[2022-04-14 12:31] LABS: BACTERIA 2+; WBC TNTC wbc/hpf (0-5)
[2022-04-14 14:22] VITALS: BP 158/76
[2022-04-14] MEDS ORDERED: PYRIDIUM200 M1 PO (15:09)
[2022-04-14] MEDS ORDERED: MACROBID100 M1 PO (15:10)
== END 2022-04-14 15:43 | disposition home or self-care (01) ==
LOC: ED 10:37
PROVIDERS: Emergency Medicine
DX: N39.0 Urinary tract infection, site not specified (principal); R07.9 Chest pain, unspecified; Z88.1 Allergy status to other antibiotic agents; Z88.8 Allergy status to other drugs, medicaments and biological substances; Z79.899 Other long term (current) drug therapy; E03.9 Hypothyroidism, unspecified; Z95.1 Presence of aortocoronary bypass graft

== ENCOUNTER → 2022-04-25 | Outpatient (CLI) | payer OTHER ==
[~2022-04-25] MED LIST changes: +MACROBID100 M1 PO; +PYRIDIUM200 M1 PO
[2022-04-25 15:18] LABS: BASO # 0.1 10*3/uL (0.0-0.1); EOS # 0.2 10*3/uL (0.0-0.4); EOS % 3.1 % (1.0-4.0); HEMATOCRIT 31.7 % (42.0-52.0); LYMPH # 1.3 10*3/uL (1.3-4.4); MEAN CORPUSCULAR HGB 27.9 pg (27.0-31.0); MEAN CORPUSCULAR HGB CONC 32.8 g/dl (33.0-37.0); MEAN PLATELET VOLUME 8.7 fl (9.6-12.3); MONO # 0.9 10*3/uL (0.1-1.0); MONO % 13.2 % (3.0-9.0); NEUT # 4.1 10*3/uL (2.3-7.9); PLATELET COUNT AUTOMATED 207 10*3/uL (130-400); RED BLOOD COUNT 3.73 10*6/uL (4.50-5.90); RED CELL DISTRI WIDTH 15.5 % (0-14.5); WHITE BLOOD COUNT 6.7 10*3/uL (4.8-10.8)
[2022-04-25 15:37] LABS: ALKALINE PHOSPHATASE 103 U/L (45-117); BUN 14 mg/dl (7-24); CHLORIDE 109 mmol/L (98-107); CHOLESTEROL 110 mg/dL (<200); LDL CHOLESTEROL 45 mg/dL (9-159); POTASSIUM 4.3 mmol/L (3.5-5.1); SGOT/AST 19 IU/L (3-35); SGPT/ALT 29 U/L (12-78); SODIUM 140 mmol/L (136-145); T3 UPTAKE 33 % (31-39); TOTAL PROTEIN 7.2 gm/dL (6.4-8.2); TRIGLYCERIDES 138 mg/dl (<150)
[2022-04-25 16:35] LABS: VITAMIN D, 25-HYDROXY 38.3 ng/mL (30-100)
== END | disposition home or self-care (01) ==
LOC: LAB 14:56
PROVIDERS: ATTEND Internal Medicine
DX: E78.2 Mixed hyperlipidemia (principal); R73.9 Hyperglycemia, unspecified; E55.9 Vitamin D deficiency, unspecified; Z13.0 Encounter for screening for diseases of the blood and blood-forming organs and certain disorders involving the immune mechanism; Z13.21 Encounter for screening for nutritional disorder; Z13.1 Encounter for screening for diabetes mellitus; Z13.220 Encounter for screening for lipoid disorders; Z13.29 Encounter for screening for other suspected endocrine disorder; Z13.6 Encounter for screening for cardiovascular disorders; Z13.89 Encounter for screening for other disorder; Z13.9 Encounter for screening, unspecified; I10 Essential (primary) hypertension; I95.9 Hypotension, unspecified

== ENCOUNTER 2022-05-19 15:43 | Emergency (ER) | payer OTHER ==
[~2022-05-19] VITALS: Ht 170.1 cm; Wt 72.6 kg
[2022-05-19 15:57] VITALS: BP 165/80
[2022-05-19 16:33] LABS: BASO # 0.1 10*3/uL (0.0-0.1); BASO % 0.5 % (0.0-1.0); EOS # 0.2 10*3/uL (0.0-0.4); EOS % 1.6 % (1.0-4.0); LYMPH # 2.3 10*3/uL (1.3-4.4); LYMPH % 22.9 % (27.0-41.0); MEAN CELL VOLUME 83.8 fl (80.0-94.0); MEAN CORPUSCULAR HGB 27.5 pg (27.0-31.0); MEAN CORPUSCULAR HGB CONC 32.8 g/dl (33.0-37.0); MEAN PLATELET VOLUME 8.6 fl (9.6-12.3); MONO # 1.2 10*3/uL (0.1-1.0); MONO % 11.7 % (3.0-9.0); NEUT # 6.2 10*3/uL (2.3-7.9); NEUT % 62.6 % (47.0-73.0); PLATELET COUNT AUTOMATED 213 10*3/uL (130-400); RED BLOOD COUNT 3.82 10*6/uL (4.50-5.90); RED CELL DISTRI WIDTH 15.6 % (0-14.5); WHITE BLOOD COUNT 9.9 10*3/uL (4.8-10.8)
[2022-05-19 16:49] LABS: ALKALINE PHOSPHATASE 102 U/L (45-117); BUN 17 mg/dl (7-24); CHLORIDE 103 mmol/L (98-107); CREATININE 1.02 mg/dL (0.70-1.30); POTASSIUM 3.9 mmol/L (3.5-5.1); SGOT/AST 27 IU/L (3-35); SGPT/ALT 27 U/L (12-78); SODIUM 136 mmol/L (136-145); TOTAL PROTEIN 7.3 gm/dL (6.4-8.2)
[2022-05-19 16:57] LABS: BILIRUBIN Negative (Negative); BLOOD 3+ (Negative); CLARITY Turbid (Clear); COLOR Red (Yellow); GLUCOSE Negative (Negative); KETONE Negative (Negative); LEUKO ESTERASE 3+ (Negative); NITRITE Negative (Negative); PH 5.5 (4.5-8.0); UROBILINOGEN 0.2 E.U./dl (0.0-1.0)
[2022-05-19 17:16] LABS: BACTERIA 2+; RBC TNTC rbc/hpf (0-2); WBC 31-40 wbc/hpf (0-5)
[2022-05-19] MEDS ORDERED: MACROBID100 M1 PO (17:21)
== END 2022-05-19 17:28 | disposition home or self-care (01) ==
LOC: ED 15:43
PROVIDERS: Physician Assistant
DX: N39.0 Urinary tract infection, site not specified (principal); Z88.8 Allergy status to other drugs, medicaments and biological substances; Z88.1 Allergy status to other antibiotic agents; Z79.899 Other long term (current) drug therapy

== ENCOUNTER 2023-01-08 04:12 | Inpatient (IN) | payer OTHER ==
[~2023-01-08] VITALS: Ht 170.1 cm; Wt 68.6 kg
[~2023-01-08 04:12] MED LIST changes: +AMOX-CLAV 875-1 EACH PO; +FLUONAZOLE200 M1 PO; +KEYTRUDA100 MG/4 M IV; +MIRALAX17 GM PO
[2023-01-08 04:13] VITALS: BP 134/74
[2023-01-08 05:58] LABS: ALKALINE PHOSPHATASE 98 U/L (46-116); BUN 5 mg/dl (9-23); CHLORIDE 86 mmol/L (98-107); POTASSIUM 3.7 mmol/L (3.4-5.1); SGPT/ALT 15 U/L (10-49); TOTAL PROTEIN 6.7 gm/dL (6.0-8.0)
[2023-01-08 06:05] LABS: BASO # 0.1 10*3/uL (0.0-0.1); EOS # 1.1 10*3/uL (0.0-0.4); EOS % 16.4 % (1.0-4.0); HEMATOCRIT 32.3 % (42.0-52.0); LYMPH # 1.1 10*3/uL (1.3-4.4); LYMPH % 16.6 % (27.0-41.0); MEAN CELL VOLUME 79.2 fl (80.0-94.0); MEAN CORPUSCULAR HGB 27.9 pg (27.0-31.0); MEAN CORPUSCULAR HGB CONC 35.3 g/dl (33.0-37.0); MEAN PLATELET VOLUME 8.6 fl (9.6-12.3); MONO # 1.2 10*3/uL (0.1-1.0); MONO % 17.9 % (3.0-9.0); NEUT # 3.2 10*3/uL (2.3-7.9); NEUT % 47.1 % (47.0-73.0); PLATELET COUNT AUTOMATED 289 10*3/uL (130-400); RED BLOOD COUNT 4.08 10*6/uL (4.50-5.90); RED CELL DISTRI WIDTH 13.9 % (0-14.5); WHITE BLOOD COUNT 6.9 10*3/uL (4.8-10.8)
[2023-01-08 06:50] LABS: BILIRUBIN Negative (Negative); BLOOD Negative (Negative); CLARITY Clear (Clear); COLOR Yellow (Yellow); GLUCOSE Negative (Negative); KETONE Negative (Negative); LEUKO ESTERASE Negative (Negative); NITRITE Negative (Negative); SPECIFIC GRAVITY 1.015 (1.001-1.030); UROBILINOGEN 0.2 E.U./dl (0.0-1.0)
[2023-01-08 06:58] LABS: BACTERIA 1+; EPITHELIAL CELLS 0-2; RBC 0-2 rbc/hpf (0-2)
[2023-01-08 08:22] VITALS: BP 120/56
[2023-01-08 11:45] LABS: CHLORIDE 88 mmol/L (98-107); POTASSIUM 4.1 mmol/L (3.4-5.1)
[2023-01-08 11:49] LABS: BUN < 5 mg/dl (9-23)
[2023-01-08 12:00] VITALS: BP 158/80
[2023-01-08 16:00] VITALS: BP 144/53
[2023-01-08] MEDS ORDERED: AMBIENPAK10 MG PO (17:26)
[2023-01-08 17:54] LABS: BUN 5 mg/dl (9-23); CHLORIDE 89 mmol/L (98-107); POTASSIUM 3.8 mmol/L (3.4-5.1)
[2023-01-08 20:00] VITALS: BP 140/60
[2023-01-09] VITALS: BP 127/67
[2023-01-09 00:33] LABS: CHLORIDE 89 mmol/L (98-107); POTASSIUM 4.2 mmol/L (3.4-5.1)
[2023-01-09 00:34] LABS: BUN < 5 mg/dl (9-23)
[2023-01-09 03:51] LABS: BUN 5 mg/dl (9-23); CHLORIDE 92 mmol/L (98-107); POTASSIUM 4.5 mmol/L (3.4-5.1)
[2023-01-09 04:00] VITALS: BP 113/54
[2023-01-09 06:33] LABS: HEMATOCRIT 28.6 % (42.0-52.0); MEAN CELL VOLUME 80.1 fl (80.0-94.0); MEAN PLATELET VOLUME 8.4 fl (9.6-12.3); PLATELET COUNT AUTOMATED 252 10*3/uL (130-400); RED BLOOD COUNT 3.57 10*6/uL (4.50-5.90); RED CELL DISTRI WIDTH 14.1 % (0-14.5)
[2023-01-09 06:35] LABS: MANUAL DIFF REFLEX YES
[2023-01-09 07:22] LABS: CHLORIDE 91 mmol/L (98-107); POTASSIUM 4.1 mmol/L (3.4-5.1); THYROID STIM HORMONE (HS) 16.705 uIU/ml (0.550-4.780)
[2023-01-09 07:24] LABS: BUN < 5 mg/dl (9-23)
[2023-01-09 07:36] LABS: BASOPHILS 2 % (0-1); TOTAL CELLS COUNTED 100 #CELLS
[2023-01-09 07:37] LABS: PLATELET SUFFICIENCY NORMAL (NORMAL); POLYCHROMASIA SLIGHT
[2023-01-09 08:00] VITALS: BP 157/65
[2023-01-09 11:58] LABS: CHLORIDE 95 mmol/L (98-107); POTASSIUM 4.1 mmol/L (3.4-5.1)
[2023-01-09 11:59] LABS: BUN < 5 mg/dl (9-23)
[2023-01-09 12:00] VITALS: BP 151/76
[2023-01-09 15:23] LABS: CHLORIDE 94 mmol/L (98-107); POTASSIUM 4.1 mmol/L (3.4-5.1)
[2023-01-09 15:26] LABS: BUN < 5 mg/dl (9-23)
[2023-01-09 16:00] VITALS: BP 146/70
[2023-01-09 20:00] VITALS: BP 149/60
[2023-01-09 22:22] LABS: CHLORIDE 96 mmol/L (98-107); POTASSIUM 4.4 mmol/L (3.4-5.1)
[2023-01-09 22:28] LABS: BUN < 5 mg/dl (9-23)
[2023-01-10] VITALS: BP 93/37
[2023-01-10 04:00] VITALS: BP 141/62
[2023-01-10 05:31] LABS: BUN < 5 mg/dl (9-23); CHLORIDE 96 mmol/L (98-107); POTASSIUM 4.5 mmol/L (3.4-5.1)
[2023-01-10 08:00] VITALS: BP 141/56
[2023-01-10] MEDS ORDERED: LEVOTHYROXINE100 MC1 PO (08:42)
[2023-01-10 12:00] VITALS: BP 131/54
[2023-01-10 16:00] VITALS: BP 127/44
[2023-01-10 18:04] LABS: CHLORIDE 97 mmol/L (98-107)
[2023-01-10 18:11] LABS: BUN < 5 mg/dl (9-23)
[2023-01-10 20:32] VITALS: BP 114/42
[2023-01-11 00:03] VITALS: BP 120/55
[2023-01-11 04:39] VITALS: BP 124/55
[2023-01-11 06:20] LABS: HEMATOCRIT 25.8 % (42.0-52.0); MEAN CELL VOLUME 82.2 fl (80.0-94.0); MEAN CORPUSCULAR HGB 27.4 pg (27.0-31.0); MEAN CORPUSCULAR HGB CONC 33.3 g/dl (33.0-37.0); MEAN PLATELET VOLUME 8.5 fl (9.6-12.3); PLATELET COUNT AUTOMATED 213 10*3/uL (130-400); RED BLOOD COUNT 3.14 10*6/uL (4.50-5.90); RED CELL DISTRI WIDTH 14.6 % (0-14.5); WHITE BLOOD COUNT 5.1 10*3/uL (4.8-10.8)
[2023-01-11 06:26] LABS: MANUAL DIFF REFLEX YES
[2023-01-11 07:08] LABS: BASOPHILS 1 % (0-1); MICROCYTOSIS SLIGHT; PLATELET SUFFICIENCY NORMAL (NORMAL); TOTAL CELLS COUNTED 100 #CELLS
[2023-01-11 07:09] LABS: BURR CELLS FEW; OVALOCYTES FEW; ROULEAUX SLIGHT
[2023-01-11 07:22] LABS: CHLORIDE 97 mmol/L (98-107); POTASSIUM 4.1 mmol/L (3.4-5.1)
[2023-01-11 07:28] LABS: BUN < 5 mg/dl (9-23)
[2023-01-11 08:00] VITALS: BP 124/44
== END 2023-01-11 11:48 | disposition home or self-care (01) | DRG 643 ==
LOC: ED 04:12 → EDHOLD 07:38 → ICCU 07:38
PROVIDERS: Emergency Medicine; Internal Medicine; Internal Medicine Nephrology; ADMIT Internal Medicine; ATTEND Internal Medicine
DX: E22.2 Syndrome of inappropriate secretion of antidiuretic hormone (principal); G93.41 Metabolic encephalopathy; I48.21 Permanent atrial fibrillation; E44.0 Moderate protein-calorie malnutrition; I42.9 Cardiomyopathy, unspecified; I95.1 Orthostatic hypotension; E86.0 Dehydration; E03.9 Hypothyroidism, unspecified; G25.81 Restless legs syndrome; E83.42 Hypomagnesemia; R62.7 Adult failure to thrive; K31.84 Gastroparesis; K59.09 Other constipation; I10 Essential (primary) hypertension; C67.9 Malignant neoplasm of bladder, unspecified; R29.6 Repeated falls; F51.01 Primary insomnia; F51.04 Psychophysiologic insomnia; Z95.1 Presence of aortocoronary bypass graft; Z95.810 Presence of automatic (implantable) cardiac defibrillator; Z92.21 Personal history of antineoplastic chemotherapy; Z88.1 Allergy status to other antibiotic agents; Z88.8 Allergy status to other drugs, medicaments and biological substances; Z68.23 Body mass index [BMI] 23.0-23.9, adult

== ENCOUNTER 2023-02-03 19:46 | Emergency (ER) | payer OTHER ==
[~2023-02-03] VITALS: Ht 165.1 cm; Wt 64.9 kg
[~2023-02-03 19:46] MED LIST changes: +BUPRENORPHINE1 EACH TD; +CEFUROXIME AXE250 MG PO; +FUROSEMIDE20 M1 PO; +LEVOTHYROXINE100 MC1 PO; +MEGACE 40400 MG/10 PO; +ONDANSETRON HYDR8 MG PO; +RIVASTIGMINE T1.5 M1 PO; +ROPINIROLE HYDRO2 M2 PO; +SODIUM CHLORI1000 M5 MC
[2023-02-03 19:53] VITALS: BP 166/70
[2023-02-03 20:23] LABS: HEMATOCRIT 33.4 % (42.0-52.0); MEAN CELL VOLUME 81.3 fl (80.0-94.0); MEAN CORPUSCULAR HGB 26.5 pg (27.0-31.0); MEAN CORPUSCULAR HGB CONC 32.6 g/dl (33.0-37.0); MEAN PLATELET VOLUME 8.3 fl (9.6-12.3); PLATELET COUNT AUTOMATED 367 10*3/uL (130-400); RED BLOOD COUNT 4.11 10*6/uL (4.50-5.90); RED CELL DISTRI WIDTH 15.3 % (0-14.5); WHITE BLOOD COUNT 15.1 10*3/uL (4.8-10.8)
[2023-02-03 20:31] LABS: ACT PARTIAL THROMBO TIME 30.7 SECONDS (20.0-32.1); INTERNATIONAL NORM RATIO 1.1 (2.0-3.5)
[2023-02-03 20:32] LABS: ALKALINE PHOSPHATASE 94 U/L (46-116); BUN 27 mg/dl (9-23); CHLORIDE 102 mmol/L (98-107); POTASSIUM 4.2 mmol/L (3.4-5.1); SGPT/ALT 29 U/L (10-49); TOTAL PROTEIN 7.6 gm/dL (6.0-8.0)
[2023-02-03 20:34] LABS: MANUAL DIFF REFLEX YES
[2023-02-03 20:41] LABS: BASOPHILS 1 % (0-1); PLATELET SUFFICIENCY NORMAL (NORMAL); TOTAL CELLS COUNTED 100 #CELLS
[2023-02-03 20:42] LABS: OVALOCYTES FEW
[2023-02-03 21:59] LABS: BILIRUBIN Negative (Negative); BLOOD Negative (Negative); CLARITY Clear (Clear); COLOR Yellow (Yellow); GLUCOSE Negative (Negative); KETONE Trace (Negative); LEUKO ESTERASE Negative (Negative); NITRITE Negative (Negative); PH 5.5 (4.5-8.0); UROBILINOGEN 0.2 E.U./dl (0.0-1.0)
[2023-02-03 22:07] LABS: RBC 0-2 rbc/hpf (0-2)
[2023-02-03 22:08] LABS: WBC 0-2 wbc/hpf (0-5)
[2023-02-03] MEDS ORDERED: Ondansetron4 MG PO (22:18)
[2023-02-03] MEDS ORDERED: CEFDINIR300 MG PO (22:18)
== END 2023-02-04 00:29 | disposition short-term general hospital (02) ==
LOC: ED 19:46
PROVIDERS: Internal Medicine
DX: R11.2 Nausea with vomiting, unspecified (principal); R30.0 Dysuria; I10 Essential (primary) hypertension; F41.9 Anxiety disorder, unspecified; F32.A Depression, unspecified; I48.91 Unspecified atrial fibrillation; Z88.1 Allergy status to other antibiotic agents; Z88.8 Allergy status to other drugs, medicaments and biological substances; Z90.89 Acquired absence of other organs; Z98.890 Other specified postprocedural states

== ENCOUNTER → 2023-04-23 | Outpatient (CLI) | payer OTHER ==
[~2023-04-23] MED LIST changes: +AMMONIUM LACTA227 GM T; +CEFDINIR300 MG PO; +HYDROCODONE-AC1 EAC1 PO; +Ondansetron4 MG PO; +VISTARIL25 MG PO
[2023-04-23 13:29] LABS: ALKALINE PHOSPHATASE 75 U/L (46-116); BUN 10 mg/dl (9-23); CHLORIDE 94 mmol/L (98-107); POTASSIUM 3.7 mmol/L (3.4-5.1); SGPT/ALT 12 U/L (10-49); TOTAL PROTEIN 7.3 gm/dL (6.0-8.0)
== END | disposition home or self-care (01) ==
LOC: LAB 12:10
PROVIDERS: ATTEND Internal Medicine
DX: C67.9 Malignant neoplasm of bladder, unspecified (principal); I10 Essential (primary) hypertension

== ENCOUNTER → 2023-07-01 | Outpatient (CLI) | payer MEDICARE ==
[~2023-07-01] MED LIST changes: +DOCUSATE SOD100 MG PO; +DULOXETINE HCL30 MG PO; +FLOMAX0.4 MG PO; +METRONIDAZOLE500 M1 PO; +MIDODRINE HCL2.5 MG PO; +ONDANSETRON ODT8 MG PO; +REGLAN5 MG PO
== END | disposition home or self-care (01) ==
LOC: CT 00:17
PROVIDERS: ATTEND Internal Medicine
DX: I67.82 Cerebral ischemia (principal); R51.9 Headache, unspecified